=== PATIENT | female | born 1975 | race Caucasian/White ===

== ENCOUNTER 2016-09-16 15:31 | Inpatient (IN) | payer SELFPAY ==
[~2016-09-16] VITALS: Ht 162.6 cm; Wt 131.1 kg
[~2016-09-16 15:31] MED LIST: DOXYCYCLINE PO
[2016-09-16 16:38] LABS: BASO # 0.1 K/mm3 (0.0-0.2); BASO % 0.4 % (0.0-1.0); EOS % 0.1 % (0.0-3.0); LARGE UNSTAINED CELL # 0.1 K/mm3 (0.0-0.4); LARGE UNSTAINED CELL % 0.9 % (0.0-4.0); LYMPH # 1.3 K/mm3 (1.5-4.5); LYMPH % 6.9 % (24.0-44.0); MEAN CORPUSCULAR VOLUME 80.7 fl (80.0-96.0); MONO # 0.7 K/mm3 (0.0-0.8); MONO % 3.9 % (0.0-5.0); NEUTROPHILS # 14.6 K/mm3 (1.8-7.7); NEUTROPHILS % 87.8 % (36.0-66.0); PLATELET COUNT, AUTOMATED 232 k/mm3 (150-450); RED CELL DISTRIBUTION WIDTH 14.5 % (11.5-14.5); WHITE BLOOD COUNT 16.6 K/mm3 (4.0-10.0)
[2016-09-16 16:51] LABS: CONTROL LINE HCG INT CTR LINE PRESENT
[2016-09-16] MEDS ORDERED: ONDANSETRON 4MG/2ML VIAL (J2405) As Ordered ONE (16:54)
[2016-09-16 17:00] LABS: ALBUMIN 4.1 GM/DL (3.2-5.2); ALKALINE PHOSPHATASE 77 U/L (45-117); ALT/SGPT 27 U/L (12-78); ANION GAP 10 MEQ/L (8-16); AST/SGOT 24 U/L (15-37); BILIRUBIN,DIRECT < 0.1 MG/DL (0.0-0.2); BILIRUBIN,TOTAL 0.2 MG/DL (0.2-1.0); BLOOD UREA NITROGEN 11 MG/DL (7-18); CALCIUM LEVEL 8.8 MG/DL (8.5-10.1); CARBON DIOXIDE LEVEL 25 MEQ/L (21-32); CHLORIDE LEVEL 107 MEQ/L (98-107); CREATININE FOR GFR 0.82 MG/DL (0.55-1.02); GLOMERULAR FILTRATION RATE > 60.0 (>60); GLUCOSE, FASTING 108 MG/DL (70-105); MAGNESIUM LEVEL 2.1 MG/DL (1.8-2.4); SODIUM LEVEL 142 MEQ/L (136-145); TOTAL PROTEIN 8.2 GM/DL (6.4-8.2)
[2016-09-16 18:06] LABS: AMPHETAMINES LEVEL URINE NEGATIVE (NEGATIVE); BENZODIAZEPINES URINE NEGATIVE (NEGATIVE); COCAINE METABOLITE URINE NEGATIVE (NEGATIVE); CONTROL LINE INT CTR LINE PRESENT; METHADONE URINE NEGATIVE (NEGATIVE); OPIATES URINE NEGATIVE (NEGATIVE); TRICYCLIC ANTIDEPRESS URINE NEGATIVE (NEGATIVE)
--- NOTE | 2016-09-16 18:10 | REPUSA ---
TECHNIQUE: Multiple axial brain CT scan sections were obtained from base to vertex without contrast a dministration. COMMENTS: The study shows normal configuration of sella turcica. There are no intra or extra-axial collections. There is no mass effect or midline shift. There is no evidence of hematoma formation. No hydrocephal us is present. No abnormal calcifications are noted. No significant abnormalities are seen either in the posterior fossa or supratentorial compartment. The left maxillary sinusitis is seen. The mastoid air cells are patent. IMPRESSION: No evidence of acute intracranial pathology. Sinusitis Thank you for your kind referral of this patient.
[2016-09-16] MEDS ORDERED: LORazepam 2 MG/ML VIAL (J2060) As Ordered ONE (18:49)
--- NOTE | 2016-09-16 18:50 | REPUSA ---
CLINICAL HISTORY: Miscarriage. TECHNIQUE: High resolution examination consisting of transabdominal and transvaginal ultrasound perf ormed. TV exam is nondiagnostic. FINDINGS: Uterine size: 14.5 x 5.1 x 6.8. AP endometrial thickness: 10.6 mm. Hyperechoic area seen in endometrium with blood flow ? polyp vers us mass versus RPOC. Bilateral ovaries are within normal limits. Right ovary measures 2.7 x 1.2 x 3.0. RI: 0.47. Abnormality: WNL - best seen with linear probe. Left ovary measures 2.5 x 1.9 x 2.1. RI: 0.53. Abnormality: WNL - best seen with linear probe. Enlarged uterus measuring 5.2 x 4.1 x 4.5 mm. Bladder measures 9.3 x 9.2 x 10.6 cm. Moderate bladder debris seen. IMPRESSION: Hyperechoic area seen in endometrium with blood flow ? polyp versus mass versus RPOC. Clinical hieu elation is recommended. Consider short-term follow-up. Moderate bladder debris seen. Thank you for your kind referral of this patient. We appreciate the opportunity to participate in thi s patient's care.
[2016-09-16] MEDS ORDERED: levETIRAcetam 500 MG/5 ML VIAL (KEPPRA IV)(J1953) As Ordered ONE (18:55)
[2016-09-16] MEDS ORDERED: ACETAMINOPHEN 650 MG SUPP As Ordered ONE (18:55)
[2016-09-16] MEDS ORDERED: ZOSYN 3.375 GM VIAL (J2543) As Ordered ONE (19:41)
[2016-09-16] MEDS ORDERED: ONDANSETRON 4MG/2ML VIAL (J2405) IV PRN (20:00)
[2016-09-16] MEDS ORDERED: ONDANSETRON 4 MG TAB (S0181) PO PRN (20:00)
[2016-09-16] MEDS ORDERED: ACETAMINOPHEN TAB 650MG DOSE (2X325MG) PO PRN (20:00)
[2016-09-16] MEDS ORDERED: ACETAMINOPHEN 650 MG SUPP PR PRN (20:00)
[2016-09-16] MEDS ORDERED: LORazepam 2 MG/ML VIAL (J2060) IV PRN (20:00)
[2016-09-16] MEDS ORDERED: VANCOMYCIN 1000 MG/20 ML VIAL (J3370) As Ordered ONE (20:08)
--- NOTE | 2016-09-16 20:45 | HPEPDOC ---
Medical History and Physical Date of Admission 09/16/2016 History and Physical HISTORY AND PHYSICAL Date of admission: 09/16/2016 PCP: None Chief complaint: Seizures and vaginal bleeding HPI: 41-year-old [id number] Wolfgang female with history of seizure disorder and spontaneous in July 2016 who presented with seizures at 7 AM, 9 AM , and 1 PM today. She also has been experiencing daily vaginal bleeding since a miscarriage in July 2016. Per the report of her and her mother, she is known to have a seizure disorder and used to be on Dilantin. She stopped the Dilantin many years ago secondary to side effects. Her mother states that she hasn't had a "big seizure" in many years, but she does report that she often has small seizures when she gets very tired. Her mom states that the last one of these was approximately 1-1/2 years ago. Today, she had a seizure at 7 AM that was witnessed by her . He states that she became very stiff all over and it lasted about 10-15 minutes. When she woke up from it, he states that she never really got back to her normal self. About 9 AM, she had another seizure. He states that she threw up this time. Again, she did not return to her normal state of mind. He states that she had a third seizure at 1:00 this afternoon. In the ER, Dr. Quispe spoke with Dr. Presley who recommended Keppra load and then starting Keppra 750 mg twice a day. Before the patient could receive the Keppra load, she seized again. During this seizure in the ED, she received 2 mg of IV Ativan which broke the seizure. A nasal trumpet was then placed. The patient had previously been afebrile, but after this witnessed seizure in the ED , she was noted to have a fever of over 101. At that time, the patient received vancomycin and Zosyn and a lactate was drawn. The and mother state that the patient had overall been in her normal state of health in the days prior to today. The only change today note, is that she has seemed very exhausted for the last couple months. The patient was post ictal at the time of my exam and was not able to contribute to this interview. Of note, the patient's mother states that she has had daily vaginal bleeding since her miscarriage in July 2016. She states that on some days, the bleeding is like a normal menstrual flow, but on other days it is only spotting. Past medical history: Seizure disorder Past surgical history: None Family history: Colon cancer in her father, seizures in 2 of her children Social history: The patient is on much, and lives with her , 12 children , and her parents. Allergies: No known drug allergies Review of systems: Unable to obtain secondary to the patient's postictal status. Her and mother state that other than being tired, she was otherwise in her normal state of health in the days leading up to today. Other than her seizures, the only note that she vomited today. As noted above, she has had daily vaginal bleeding for 2 months. Home meds: See below Physical exam: Vital signs: Blood pressure 142/68, HR 89, temperature 101.3, O2 sat 100% on nonrebreather, RR 16 Gen.: awake, groggy, no acute distress, responds to verbal stimuli and follows directions Eyes: Extraocular movements intact, normal sclera ENT: Moist mucous membranes Cardiovascular: RRR, no murmurs rubs or gallops Lungs: clear to auscultation bilaterally, no rales, rhonchi, or wheeze Abdomen: Soft, NT/ND, normal BS Musculoskeletal: moves all extremities Extremities: No peripheral edema Neuro: postictal, moves all extremities, follows commands, responds to verbal stimuli Psych: unable to assess Labs and radiology: See below White count 16.6 Hemoglobin 10.3 Lactate 7.7 Assessment and plan: 41-year-old [id number] [facility] female with history of seizure disorder and spontaneous in July 2016 who presented with seizures at 7 AM, 9 AM , and 1 PM today, as well as daily vaginal bleeding since the miscarriage. She is admitted with breakthrough seizures and retained products of conception, as well as a fever. 1. Breakthrough seizures: The patient is known to have seizure disorder and is not currently on any antiepileptics. Per Dr. Presley's recommendations, she has received a Keppra load and is being started on Keppra 750 mg twice a day. She' ll be monitored in the PCU with seizure precautions and neuro checks. She will have as needed Ativan for any further breakthrough seizures. At this time, it is unclear if the seizures are a result of an underlying process, or if her new fever is resolved seizure. She will be nothing by mouth with IV fluids since she is still postictal. 2. Fever: After the seizure in the ER, the patient was noted to have a fever of over 101. Blood and urine cultures have been collected, and she received vancomycin and zosyn. Chest x-ray is pending. Etiology of the fever is unclear at this time, but differential includes fever secondary to the seizures, fever secondary to possible aspiration from emesis with the seizures, or fever secondary to endometritis from retained products of conception. We will follow up the chest x-ray. At this time, we will only continue her on Zosyn, as I believe that most likely if the fever is infectious in nature, it is secondary to either aspiration pneumonia or endometritis, both of which would be covered by Zosyn. Of note, the ER physician tells me that when she examined the patient prior to the seizure in the ER, she had a supple neck and no signs of meningismus. It is possible that the patient is septic, but we will not be able to tease this out until we determine if she has a true underlying infection. Given that she is hemodynamically stable, I will not be bolusing her with IV fluids but will rather just start her on gentle maintenance fluids. An initial lactate was 7.7. Again, this could be secondary to an underlying infectious process, but it could also simply be secondary to her seizures. A repeat lactate will be collected in 6 hours. 3. Vaginal bleeding: The patient has had daily vaginal bleeding since her miscarriage 2 months ago. An ultrasound is consistent with retained products of conception. I have spoken with Dr. Chandra who is hat ironer for [employer], and [facility] will be [facility] We appreciate his recommendations and management of this patient. Of note, the patient is Rh-, but the patient's mother assures us that the patient received Rhogam at home after the miscarriage in July. Hemoglobin is 10.3. She has no urgent need for transfusion, and we'll continue to trend her hemoglobins. DVT prophylaxis: SCDs Dispo: admit as an inpatient to the service of Dr. Spivey CODE STATUS: Full code Vital Signs see above Laboratory Data Labs 24H Laboratory Tests 2 09/16/16 16:12: Bedside Glucose (Misc Panel) 97 09/16/16 16:25: Aspartate Amino Transf (AST/SGOT) 24, Alanine Aminotransferase (ALT/SGPT) 27, Alkaline Phosphatase 77, Total Bilirubin 0.2, Direct Bilirubin < 0.1, Albumin 4.1, Albumin/Globulin Ratio 1.00, Anion Gap 10, White Blood Count 16.6H, Red Blood Count 4.10, Hemoglobin 10.3L, Hematocrit 33.1L, Mean Corpuscular Volume 80.7, Mean Corpuscular Hemoglobin 25.0L, Mean Corpuscular Hemoglobin Concent 31.0L, Red Cell Distribution Width 14.5, Platelet Count 232, Neutrophils (%) ( Auto) 87.8H, Lymphocytes (%) (Auto) 6.9L, Monocytes (%) (Auto) 3.9, Eosinophils (%) (Auto) 0.1, Basophils (%) (Auto) 0.4, Neutrophils # (Auto) 14.6H, Lymphocytes # (Auto) 1.3L, Monocytes # (Auto) 0.7, Eosinophils # (Auto) 0.0, Basophils # (Auto) 0.1, Calcium Level 8.8, Creatine Kinase MB 1.8, Creatine Kinase MB Relative Index 0.70, Glomerular Filtration Rate > 60.0, Human Chorionic Gonadotropin, Qual NEGATIVE, Large Unclassified Cells # 0.1, Large Unclassified Cells % 0.9, Magnesium Level 2.1, Total Creatine Kinase 255H, Total Protein 8.2, Troponin I < 0.02 09/16/16 17:43: Urine Amorphous Sediment SMALLH, Urine Amphetamine Level NEGATIVE, Urine Benzodiazepines Screen NEGATIVE, Urine Cannabinoids NEGATIVE, Urine Cocaine Metabolite NEGATIVE, Urine Opiates Screen NEGATIVE, Urine Appearance TURBIDH, Urine Color YELLOW, Urine pH 5.0, Urine Specific [place] 1.012, Urine Protein NEGATIVE, Urine Glucose (UA) NEGATIVE, Urine Ketones NEGATIVE, Urine Urobilinogen 0.2, Urine Bilirubin NEGATIVE, Urine Leukocyte Esterase TRACEH, Urine Bacteria (Auto) 1+H, Urine Barbiturates, Qualitative NEGATIVE, Urine Blood 3+H, Urine Calcium Carbonate Cryst(Auto) , Urine Calcium Oxalate Cryst ( Auto) , Urine Calcium Phosphate Allie (Auto) , Urine Cellular Casts , Urine Cystine Crystals , Urine Granular Casts (Auto) , Urine Hyaline Casts (Auto) 0, Urine Leucine Crystals , Urine Methadone Screen NEGATIVE, Urine Mucus (Auto) , Urine Nitrite NEGATIVE, Urine Oval Fat Bodies (Auto) , Urine RBC (Auto) 90H, Urine Renal Epithelial Cells , Urine Sperm (Auto) , Urine Squamous Epithelial Cells 1, Urine Transitional Epithelial Cells , Urine Trichomonas (Auto) , Urine Tricyclic Antidepressants NEGATIVE, Urine Triple Phosphate Cryst (Auto) , Urine Tyrosine Crystals , Urine Uric Acid Crystals (Auto) MODERATE, Urine WBC (Auto) 9H, Urine Waxy Casts (Auto) , Urine Yeast-Like Cells (Auto) 09/16/16 19:35: Lactic Acid Level 7.7*H CBC/BMP Laboratory Tests 09/16/16 16:25 Red Blood Count 4.10, Mean Corpuscular Volume 80.7, Mean Corpuscular Hemoglobin 25.0 L, Mean Corpuscular Hemoglobin Concent 31.0 L, Red Cell Distribution Width 14.5, Neutrophils (%) (Auto) 87.8 H, Lymphocytes (%) (Auto) 6.9 L, Monocytes (% ) (Auto) 3.9, Eosinophils (%) (Auto) 0.1, Basophils (%) (Auto) 0.4, Neutrophils # (Auto) 14.6 H, Lymphocytes # (Auto) 1.3 L, Monocytes # (Auto) 0.7, Eosinophils # (Auto) 0.0, Basophils # (Auto) 0.1 FSBS Laboratory Tests Test 09/16/16 16:12 Range/Units Bedside Glucose (Misc Panel) 97 70-105 MG/DL Microbiology Microbiology 09/16/16 Blood Culture, Received Pending 09/16/16 Blood Culture, Received Pending 09/16/16 Urine Culture, Received Pending Home Medications No Active Prescriptions or Reported Meds Allergies Coded Allergies: No Known Allergies (Unverified , 02/04/14) DANY FINLEY Sep 16, 2016 20:45
--- NOTE | 2016-09-16 21:54 | EDDOCDS ---
Nurse's Notes [facility] Name: Annette Gerardo Age: 41 yrs Sex: Female : 1975 Arrival Date: 09/16/2016 Time: 15:31 Bed 2 Private MD: NO PRIMARY PHYSICIAN, . Diagnosis: Epilepsy and recurrent seizures;Abnormal product of conception, unspecified-retained; vaginal bleeding Presentation: 09/16 15:45 Adult Sepsis Screening: The patient does not have new or worsening altered mentation. jf3 Patient's respiratory rate is less than 22. Systolic blood pressure is greater than 100. Patient has a qSOFA score of 0- Negative Sepsis Screen. Suicide/Homicide risk assessment- the patient denies having any suicidal and/or homicidal ideations and does not present with any other emotional, behavioral or mental health complaints. Status: Patient is not a service tester or dependent. Transition of care: patient was not received from another setting of care. 15:45 Method Of Arrival: Walkin/Carried/Asstd 3 15:45 Acuity: GEE Level 3 jf3 15:59 Presenting complaint: Mother states: Family states pt had a seizure this AM around 7am jf3 today. Another seizure around 9am today with vomiting and pt fell and may have hit head. Another seizure at 1pm with vomiting. Family states recent miscarriage in mid July with on and off bleeding with varying heaviness in flow ever since. 17:10 Red Flag criteria, patient assessed and taken directly to a bed. dls Triage Assessment: 15:59 General: Appears sleepy and tired. Pain: Location: forehead. Pt Declines HIV testing. jf3 The patient is triaged at the bedside. See Assessment in Nurses Notes section of ED record. Neurological: Level of Consciousness is awake, alert, Oriented to person, place, time, Facial symmetry appears normal, Pupils are PERRLA. Cardiovascular: Capillary refill < 3 seconds. Respiratory: Airway is patent Respiratory effort is even, unlabored, Respiratory pattern is regular, symmetrical. Derm: Skin is normal. PET GROOMER: 15:59 14, 2, Living 12 jf3 Historical: - Allergies: no known allergies; - Home Meds: 1. none - PMHx: Seizures; - PSHx: none; - Social history: Smoking status: Patient states was never smoker of tobacco. No barriers to communication noted, The patient speaks fluent Croatian. - Family history: Not pertinent. - : The pt / caregiver states he / she is not on anticoagulants. Home medication list is obtained from family members. - Exposure Risk Screening:: None identified. Screenin:07 Screening information is obtained from family members. Fall risk: No risks identified. jf3 Assistance ADL's: requires no assistance with activities of daily living. Abuse/DV Screen: The patient / caregiver reports he/she is: not in a situation that causes fear, pain or injury. Nutritional screening: No deficits noted. Advance Directives: Currently, there is no health care proxy. There is no active DNR order. home support is adequate. Assessment: 16:07 Adult Sepsis Screening: The patient does not have new or worsening altered mentation. jf3 Patient's respiratory rate is less than 22. Systolic blood pressure is greater than 100. Patient has a qSOFA score of 0- Negative Sepsis Screen. General: Appears in no apparent distress, sleepy. Behavior is cooperative. Pain: Location: forehead. Neurological: Level of Consciousness is awake, alert, Oriented to person, place, time, Sole Buffer are equal bilaterally Moves all extremities. Facial symmetry appears normal, Pupils are PERRLA. Cardiovascular: Capillary refill < 3 seconds Heart tones S1 S2 present Chest pain is denied. Respiratory: Airway is patent Respiratory effort is even, unlabored, Respiratory pattern is regular, symmetrical, Breath sounds are clear bilaterally. Derm: Skin is normal. 17:00 General: Appears sleepy. Behavior is drowsy, quiet. Neurological: Level of jf3 Consciousness is post ictal, Oriented to Pt intermittently confused. Respiratory: Airway is patent Respiratory effort is even, unlabored, Respiratory pattern is regular, symmetrical. GI: Reports nausea, vomiting. 18:15 General: Appears in no apparent distress, Behavior is drowsy, quiet. Neurological: jf3 Level of Consciousness is awake, post ictal. Respiratory: Airway is patent Respiratory effort is even, unlabored, Respiratory pattern is regular, symmetrical. 18:50 General: Pt noted by staff to be actively seizing in room on stretcher. Seizure lasting jf3 approx 1 min in length. Non-rebreather O2 placed on pt. Pt suctioned orally. Nasal trumpet placed in right nare by Dr Quispe. Pt safety maintained, IV site maintained. Temporal temp checked to be 101.3 with a follow up rectal of 99.3. Dr Quispe aware and ordered PA Acetaminophen. Ativan 2mg IV given by VI Mak at 1850. Keppra 1000mg IVPB hung at 1900. Family returned to room and informed of event by Dr Quispe. 19:15 General: Appears in no apparent distress, Behavior is drowsy. Neurological: Level of ko2 Consciousness is post ictal. Respiratory: Airway is compromised Respiratory effort is even, unlabored, Respiratory pattern is regular, symmetrical. Derm: Skin is normal. 20:12 General: critical lab value of latic acid of 7.[address] Venegas.. cp1 20:46 General: Appears in no apparent distress, Behavior is cooperative. Neurological: Level ko2 of Consciousness is awake, lethargic. Respiratory: Airway is patent Respiratory effort is even, unlabored. Derm: Skin is normal. Vital Signs: 15:35 BP 154 / 86; Pulse 91; Resp 18; Temp 98.4(O); Pulse Ox 100% on R/A; Weight 117 kg (R); elp Height 5 ft. 4 in. (162.56 cm) (R); Pain 0/10; 15:51 BP 140 / 65 (auto/); ko2 15:52 Pulse 81 MON; Pulse Ox 98% ; ko2 15:59 Pulse 81 MON; Pulse Ox 100% ; ko2 16:00 BP 148 / 68 (auto/); ko2 16:30 BP 148 / 68 (auto/); ko2 16:30 Pulse 80 MON; Pulse Ox 98% ; ko2 17:22 BP 131 / 61 (auto/); ko2 17:22 Pulse 85 MON; Pulse Ox 98% ; ko2 17:30 BP 132 / 65 (auto/); ko2 17:30 Pulse 90 MON; Pulse Ox 100% ; ko2 17:44 Pulse 84 MON; Pulse Ox 99% ; ko2 17:45 BP 124 / 75 (auto/); ko2 18:00 BP 117 / 58 (auto/); ko2 18:00 Pulse 82 MON; Pulse Ox 98% ; ko2 18:15 BP 116 / 60 (auto/); ko2 18:15 Pulse 84 MON; Pulse Ox 97% ; ko2 18:29 Pulse 82 MON; Pulse Ox 97% ; ko2 18:30 BP 116 / 57 (auto/); ko2 18:44 Pulse 84 MON; Pulse Ox 99% ; ko2 18:45 BP 114 / 61 (auto/); ko2 19:01 Temp 101.3(TE); pml 19:01 Temp 99.3(R); pml 19:15 Pulse 114 MON; Pulse Ox 100% ; ko2 19:15 BP 123 / 65 (auto/); ko2 19:37 BP 142 / 68 (auto/); ko2 19:37 Pulse 106 MON; ko2 19:56 BP 115 / 57 (auto/); ko2 19:58 Pulse 95 MON; Pulse Ox 100% ; ko2 20:00 BP 130 / 60 (auto/); ko2 20:00 Pulse 101 MON; Pulse Ox 100% ; ko2 20:14 Pulse Ox 100% ; ko2 20:15 BP 123 / 61 (auto/); ko2 20:16 Pulse Ox 97% ; ko2 20:30 BP 110 / 67 (auto/); ko2 15:35 Body Mass Index 44.27 (117.00 kg, 162.56 cm) elp Vitals: 15:35 Log In Time: September 16, 2016 at 15:34. elp 15:36 RN notified that patient meets Red Flag criteria. elp ED Course: 15:34 Patient visited by Deepti Welsh PCA. elp 15:34 Patient moved to Waiting elp 15:36 Patient visited by Deepti Welsh PCA. elp 15:36 NO PRIMARY PHYSICIAN, . is Private Physician. elp 15:36 Jameel Hankins, RN is Primary Nurse. elp 15:36 Patient moved to 2 elp 15:46 Triage Initiated jf3 15:57 Anne Forbes MD is Attending Physician. ml 15:57 Patient visited by Anne Forbes MD. ml 16:07 The patient / caregiver is instructed regarding the plan of care and ED course. Seizure jf3 precautions initiated. cardiac monitor technician on. Pulse ox on. NIBP on. 16:08 Patient visited by Todd Sevilla,VI. jf3 16:32 Patient moved to [facility] br3 16:33 EKG done. (by ED staff). Reviewed by Anne Forbes MD. ct3 16:38 Patient visited by Emelina Lewis PCA. ct3 17:07 COUNT INCLUDES THE [facility] Payment Agreement was scanned into [employer] and attached to record. ks16 17:12 Inserted saline lock: 20 gauge in right antecubital area The patient tolerated the jf3 procedure well. placed by VI Monsivais. No procedures done that require assistance. 17:14 Patient moved to 2 br3 17:15 Patient name changed from Annette\S\\S\Swartzentruber\S\ to Annette\S\ \S\Swartzentruber. EDMS 17:38 Patient visited by Todd Sevilla RN. jf3 17:50 Urine Toxicology Sent. kpj 17:50 Urine Culture Sent. kpj 17:50 UA Sent. kpj 18:21 Patient visited by Todd Sevilla RN. jf3 18:34 CT Head Without Contrast Returned. EDMS 18:46 Patito Venegas is Hospitalizing Provider. ml 18:56 Tammy Lewis,VI is Primary Nurse. ko2 19:03 Patient visited by Wendi Mak RN. pml 19:05 Patient visited by Brian Brasher, SAMIR. kb5 19:15 Patient visited by Todd Sevilla RN. jf3 19:16 Patient visited by Tammy Lewis,VI. ko2 19:17 -US Pelvic Non-Ob Complete Returned. EDMS 19:39 Lactic Acid (Quispe tube on ice) Sent. ko2 19:39 BLOOD CULTURES Sent. ko2 20:04 Primary Nurse role handed off by Jameel Hankins, VI [facility] Administered Medications: 16:29 Drug: NS 0.9% 1000 ml [sodium chloride 0.9 % intravenous solution] Route: IV; Rate: 100 ld5 mL/hr; Site: right antecubital; 17:34 Drug: Ondansetron 4 mg [ondansetron HCl 2 mg/mL intravenous solution (2 mL)] Route: jf3 IVP; Site: right antecubital; 18:21 Follow up: Response: Nausea is decreased jf3 18:50 Drug: LORazepam 2 mg [lorazepam 2 mg/mL injection solution (1 mL)] Route: IVP; Site: pml right antecubital; 19:00 Drug: levETIRAcetam (20mg/kg) 1000 mg [levetiracetam 500 mg/5 mL intravenous solution] jf3 Route: IVPB; Rate: 400 mL/hr; Infused Over: 15 mins; Site: right antecubital; 19:39 Follow up: IV Status: Completed infusion; IV Intake: 100ml ko2 19:02 Drug: Acetaminophen 650 mg [acetaminophen 650 mg rectal suppository (1 supp)] Route: PA;pml 19:50 Drug: Piperacillin-Tazobactam 3.375 grams [piperacillin-tazobactam 3.375 gram ko2 intravenous solution] Route: IVPB; Infused Over: 30 mins; Site: right antecubital; 20:27 Follow up: IV Status: Completed infusion; IV Intake: 50ml ko2 20:28 Drug: vancomycin (loading dose for pt. wt. >= 80kg) 2000 mg [vancomycin 500 mg ko2 intravenous solution] Route: IVPB; Site: right antecubital; Intake: 19:39 IV: 100.00ml; Total: 100.00ml. ko2 20:27 IV: 50.00ml; Total: 150.00ml. ko2 Order Results: Lab Order: CBC with Diff; SPEC'M 09/16/16 16:25 Test: WHITE BLOOD COUNT; Value: 16.6; Range: 4.0-10.0; Abnormal: Above high normal; Units: K/mm3; Status: F Test: RED BLOOD COUNT; Value: 4.10; Range: 4.00-5.40; Units: M/mm3; Status: F Test: HEMOGLOBIN; Value: 10.3; Range: 12.0-16.0; Abnormal: Below low normal; Units: g/dl; Status: F Test: HEMATOCRIT; Value: 33.1; Range: 36.0-47.0; Abnormal: Below low normal; Units: %; Status: F Test: MEAN CORPUSCULAR VOLUME; Value: 80.7; Range: 80.0-96.0; Units: fl; Status: F Test: MEAN CORPUSCULAR HEMOGLOBIN; Value: 25.0; Range: 27.0-33.0; Abnormal: Below low normal; Units: pg; Status: F Test: MEAN CORPUSCULAR HGB CONC; Value: 31.0; Range: 32.0-36.5; Abnormal: Below low normal; Units: g/dl; Status: F Test: RED CELL DISTRIBUTION WIDTH; Value: 14.5; Range: 11.5-14.5; Units: %; Status: F Test: PLATELET COUNT, AUTOMATED; Value: 232; Range: 150-450; Units: k/mm3; Status: F Test: NEUTROPHILS %; Value: 87.8; Range: 36.0-66.0; Abnormal: Above high normal; Units: %; Status: F Test: LYMPH %; Value: 6.9; Range: 24.0-44.0; Abnormal: Below low normal; Units: %; Status: F Test: MONO %; Value: 3.9; Range: 0.0-5.0; Units: %; Status: F Test: EOS %; Value: 0.1; Range: 0.0-3.0; Units: %; Status: F Test: BASO %; Value: 0.4; Range: 0.0-1.0; Units: %; Status: F Test: LARGE UNSTAINED CELL %; Value: 0.9; Range: 0.0-4.0; Units: %; Status: F Test: NEUTROPHILS #; Value: 14.6; Range: 1.8-7.7; Abnormal: Above high normal; Units: K/mm3; Status: F Test: LYMPH #; Value: 1.3; Range: 1.5-4.5; Abnormal: Below low normal; Units: K/mm3; Status: F Test: MONO #; Value: 0.7; Range: 0.0-0.8; Units: K/mm3; Status: F Test: EOS #; Value: 0.0; Range: 0.0-0.50; Units: K/mm3; Status: F Test: BASO #; Value: 0.1; Range: 0.0-0.2; Units: K/mm3; Status: F Test: LARGE UNSTAINED CELL #; Value: 0.1; Range: 0.0-0.4; Units: K/mm3; Status: F Lab Order: MED Profile; SPEC'M 09/16/16 16:25 Test: GLUCOSE, FASTING; Value: 108; Range: 70-105; Abnormal: Above high normal; Units: MG/DL; Status: F Test: BLOOD UREA NITROGEN; Value: 11; Range: 7-18; Units: MG/DL; Status: F Test: CREATININE FOR GFR; Value: 0.82; Range: 0.55-1.02; Units: MG/DL; Status: F Test: SODIUM LEVEL; Range: 136-145; Units: MEQ/L; Status: I Test: POTASSIUM SERUM; Range: 3.5-5.1; Units: MEQ/L; Status: I Test: CHLORIDE LEVEL; Range: 98-107; Units: MEQ/L; Status: I Test: CARBON DIOXIDE LEVEL; Range: 21-32; Units: MEQ/L; Status: I Test: ANION GAP; Range: 8-16; Units: MEQ/L; Status: I Test: CALCIUM LEVEL; Range: 8.5-10.1; Units: MG/DL; Status: I Test: GLOMERULAR FILTRATION RATE; Value: > 60.0; Range: >60; Status: F Test: SODIUM LEVEL; Value: 142; Range: 136-145; Units: MEQ/L; Status: F Test: POTASSIUM SERUM; Value: 4.0; Range: 3.5-5.1; Units: MEQ/L; Status: F Test: CHLORIDE LEVEL; Value: 107; Range: 98-107; Units: MEQ/L; Status: F Test: CARBON DIOXIDE LEVEL; Value: 25; Range: 21-32; Units: MEQ/L; Status: F Test: ANION GAP; Value: 10; Range: 8-16; Units: MEQ/L; Status: F Test: CALCIUM LEVEL; Value: 8.8; Range: 8.5-10.1; Units: MG/DL; Status: F Test Note: ; Units are mL/min/1.73 m2 Chronic Kidney Disease Staging per NKF: Stage I & II GFR >=60 Normal to Mildly Decreased Stage III GFR 30-59 Moderately Decreased Stage IV GFR 15-29 Severely Decreased Stage V GFR <15 Very Little GFR Left ESRD GFR <15 on TELEPHONE ORDER SUPERVISOR Lab Order: Liver Profile; TIFF'David 09/16/16 16:25 Test: AST/SGOT; Value: 24; Range: 15-37; Units: U/L; Status: F Test: ALT/SGPT; Value: 27; Range: 12-78; Units: U/L; Status: F Test: ALKALINE PHOSPHATASE; Value: 77; Range: 45-117; Units: U/L; Status: F Test: BILIRUBIN,TOTAL; Value: 0.2; Range: 0.2-1.0; Units: MG/DL; Status: F Test: BILIRUBIN,DIRECT; Value: < 0.1; Range: 0.0-0.2; Units: MG/DL; Status: F Test: TOTAL PROTEIN; Value: 8.2; Range: 6.4-8.2; Units: GM/DL; Status: F Test: ALBUMIN; Value: 4.1; Range: 3.2-5.2; Units: GM/DL; Status: F Test: ALBUMIN/GLOBULIN RATIO; Value: 1.00; Range: 1.00-1.93; Status: F Lab Order: Magnesium Level; SPEC' 09/16/16 16:25 Test: MAGNESIUM LEVEL; Value: 2.1; Range: 1.8-2.4; Units: MG/DL; Status: F Lab Order: CIP; SPEC' 09/16/16 16:25 Test: CPK CREATINE PHOSPHOKINASE; Value: 255; Range: 26-192; Abnormal: Above high normal; Units: U/L; Status: F Test: CK-MB VALUE MASS; Value: 1.8; Range: 0.0-3.6; Units: NG/ML; Status: F Test: MB/CK RELATIVE INDEX; Value: 0.70; Range: < OR =4; Status: F Test Note: ; DIAGNOSIS CRITERIA MMB ng/ml Relative Index (RI) NON-AMI < or = 5 N/A QUISPE ZONE > 5 < or = 4 AMI > 5 > 4 Lab Order: Troponin; SPEC' 09/16/16 16:25 Test: TROPONIN I; Value: < 0.02; Range: < 0.10; Units: NG/ML; Status: F Test Note: ; Troponin I Reference Interval for [employer] LOCI: 99th Percentile= 0.00-0.045 ng/ml Risk Stratification: <= 0.10 ng/ml Decreased Risk for Adverse Clinical Events. 0.10-1.50 ng/ml Increased Risk for Adverse Clinical Events. Evaluation of additional criterion and/or repeat testing in 2-6 hours is suggested to rule out myocardial damage. >= 1.50 ng/ml Indicative of Myocardial Injury. Lab Order: HCG,Serum Qualitative; SPEC'M 09/16/16 16:25 Test: HCG, SERUM QUALITATIVE; Value: NEGATIVE; Range: NEGATIVE; Status: F Lab Order: Type & Screen; [facility] 09/16/16 16:25 Test: BLOOD TYPE; Value: A NEG; Status: F Test: AB SCREEN(INDIRECT MAURI) MAN; Value: NEGATIVE; Status: F Lab Order: Fingerstick Blood Sugar; [facility] 09/16/16 16:12 Test: BEDSIDE GLUCOSE; Value: 97; Range: 70-105; Units: MG/DL; Status: F Lab Order: UA; [facility] 09/16/16 17:43 Test: APPEARANCE, URINE; Value: TURBID; Range: CLEAR; Abnormal: Above high normal; Status: F Test: COLOR, URINE; Value: YELLOW; Range: YELLOW; Status: F Test: PH,URINE; Value: 5.0; Range: 5.0-9.0; Units: UNITS; Status: F Test: SPECIFIC GRAVITY URINE AUTO; Value: 1.012; Range: 1.002-1.035; Status: F Test: PROTEIN, URINE AUTO; Value: NEGATIVE; Range: NEGATIVE; Units: mg/dL; Status: F Test: GLUCOSE, URINE (UA) AUTO; Value: NEGATIVE; Range: NEGATIVE; Units: mg/dL; Status: F Test: KETONE, URINE AUTO; Value: NEGATIVE; Range: NEGATIVE; Units: mg/dL; Status: F Test: UROBILINOGEN, URINE AUTO; Value: 0.2; Range: 0.0-2.0; Units: mg/dL; Status: F Test: BILIRUBIN, URINE AUTO; Value: NEGATIVE; Range: NEGATIVE; Status: F Test: NITRITE, URINE AUTO; Value: NEGATIVE; Range: NEGATIVE; Status: F Test: LEUKOCYTE ESTERASE, URINE AUTO; Value: TRACE; Range: NEGATIVE; Abnormal: Above high normal; Status: F Test: BLOOD, URINE BLOOD; Value: 3+; Range: NEGATIVE; Abnormal: Above high normal; Status: F Test: WBC, URINE AUTO; Value: 9; Range: 0-3; Abnormal: Above high normal; Units: /HPF; Status: F Test: RBC, URINE AUTO; Value: 90; Range: 0-3; Abnormal: Above high normal; Units: /HPF; Status: F Test: BACTERIA, URINE AUTO; Value: 1+; Range: NEGATIVE; Abnormal: Above high normal; Status: F Test: SQUAMOUS EPITHELIAL CELL UR AU; Value: 1; Range: 0-6; Units: /HPF; Status: F Test: HYALINE CAST, URINE AUTO; Value: 0; Range: 0-1; Units: /LPF; Status: F Test: AMORPHOUS SEDIMENT; Value: SMALL; Range: NEGATIVE; Abnormal: Above high normal; Status: F Test: URIC ACID CRYSTALS; Value: MODERATE; Range: NONE; Status: F Lab Order: Urine Toxicology; SPEC'M 09/16/16 17:43 Test: AMPHETAMINES LEVEL URINE; Value: NEGATIVE; Range: NEGATIVE; Status: F Test: BARBITURATES URINE; Value: NEGATIVE; Range: NEGATIVE; Status: F Test: BENZODIAZEPINES URINE; Value: NEGATIVE; Range: NEGATIVE; Status: F Test: CANNABINOIDS URINE; Value: NEGATIVE; Range: NEGATIVE; Status: F Test: COCAINE METABOLITE URINE; Value: NEGATIVE; Range: NEGATIVE; Status: F Test: METHADONE URINE; Value: NEGATIVE; Range: NEGATIVE; Status: F Test: OPIATES URINE; Value: NEGATIVE; Range: NEGATIVE; Status: F Test: TRICYCLIC ANTIDEPRESS URINE; Value: NEGATIVE; Range: NEGATIVE; Status: F Test Note: ; ALL PRESUMPTIVE POSITIVE FINDINGS ARE UNCONFIRMED NORMAL VALUES THRESHOLD IN NG/ML AMPHETAMINES 1000 METHAMPHETAMINES 1000 BARBITURATES 300 BENZODIAZEPINES 300 CANNABINOIDS (THC) 50 COCAINE METABOLITE 300 METHADONE 300 OPIATES 300 PHENCYCLIDINE 25 TRICYCLIC ANTIDEPRESSANTS 1000 RESULTS ARE FOR MEDICAL PURPOSES ONLY. ALL URINE SPECIMENS WILL BE SAVED FOR 3 DAYS. IF CONFIRMATION OF A PRESUMPTIVE POSTIVE SCREEN RESULT IS DESIRED, CALL CHEMISTRY ([phone]) AND REQUEST URINE TO BE SENT TO REFERENCE LAB. FOR A LIST OF CLOSELY RELATED COMPOUNDS PLEASE CALL THE LAB. Lab Order: Lactic Acid (Quispe tube on ice); SPEC'M 09/16/16 19:35 Test: LACTIC ACID LEVEL, LACTATE; Value: 7.7; Range: 0.4-2.0; Abnormal: Above upper panic limits; Units: MMOL/L; Status: F Radiology Order: CT Head Without Contrast Test: CT Head Without Contrast REASON FOR EXAMINATION: sz x 3; ; ; TECHNIQUE: Multiple axial brain CT scan sections were obtained from base to vertex without contrast a; dministration.; COMMENTS:; The study shows normal configuration of sella turcica. There are no intra or extra-axial collections.; There is no mass effect or midline shift. There is no evidence of hematoma formation. No hydrocephal; us is present. No abnormal calcifications are noted.; No significant abnormalities are seen either in the posterior fossa or supratentorial compartment.; The left maxillary sinusitis is seen. The mastoid air cells are patent.; IMPRESSION:; No evidence of acute intracranial pathology. Sinusitis; Thank you for your kind referral of this patient.; ; Radiology Order: -US Pelvic Non-Ob Complete Test: -US Pelvic Non-Ob Complete REASON FOR EXAMINATION: + miscarriage 07/26 bldg since; ; CLINICAL HISTORY: Miscarriage.; ; TECHNIQUE: High resolution examination consisting of transabdominal and transvaginal ultrasound perf; ormed. TV exam is nondiagnostic.; ; FINDINGS:; Uterine size: 14.5 x 5.1 x 6.8.; ; AP endometrial thickness: 10.6 mm. Hyperechoic area seen in endometrium with blood flow ? polyp vers; us mass versus RPOC.; Bilateral ovaries are within normal limits.; ; Right ovary measures 2.7 x 1.2 x 3.0. RI: 0.47. Abnormality: WNL - best seen with linear probe.; ; Left ovary measures 2.5 x 1.9 x 2.1. RI: 0.53. Abnormality: WNL - best seen with linear probe.; ; Enlarged uterus measuring 5.2 x 4.1 x 4.5 mm.; Bladder measures 9.3 x 9.2 x 10.6 cm. Moderate bladder debris seen.; ; IMPRESSION:; Hyperechoic area seen in endometrium with blood flow ? polyp versus mass versus RPOC. Clinical hieu; elation is recommended. Consider short-term follow-up.; Moderate bladder debris seen.; ; Thank you for your kind referral of this patient. We appreciate the opportunity to participate in thi; s patient's care.; ; Outcome: 18:47 Decision to Hospitalize by Provider. ml 21:39 Discharge Assessment: Patient awake, alert and oriented x 3. No cognitive and/or ko2 functional deficits noted. Patient verbalized understanding of disposition instructions. patient administered narcotics - no. The following High Risk Discharge criteria are identified: None. Admitted to ICU accompanied by nurse, accompanied by tech, via stretcher, on monitor, with chart. Condition: stable. Property :Personal belongings accompany Pt. 21:42 No special radiology studies were completed. Admission hand-off: Report called to jose martin Hemphill RN ICU. 21:53 Patient left the ED. massiel Signatures: Dispatcher [employer] EDDE Faby-Anne Quispe MD MD ml Jobson, Karen, RN RN rosales Harris, Alison Castro, RN Layne Beasley RN RN dls Anshu, Brian, SPRING ASSEMBLER SPRING ASSEMBLER kb5 Viktoriya Mcelroy br3 Carleen Alexander,SPRING MACHINE OPERATOR SPRING MACHINE OPERATOR cp1 Merle WarnerRN RN ld5 Emelina Lewis, SPRING ASSEMBLER SPRING ASSEMBLER ct3 Wendi MakRN Deepti Barfield, SPRING ASSEMBLER SPRING ASSEMBLER elp Tammy Lewis RN RN ko2 Farman, Justin,VI LEBRON jf3 Alison Murphy, Reg Reg ks16 Coleman, Bruce, SPRING ASSEMBLER SPRING ASSEMBLER jmv Corrections: (The following items were deleted from the chart) 16:09 15:59 15, 2, Living 13 3 3 MTDD
--- NOTE | 2016-09-16 21:54 | EDDOCDS ---
Physician Documentation [facility] Name: Annette Gerardo Age: 41 yrs Sex: Female : 1975 Arrival Date: 09/16/2016 Time: 15:31 Bed 2 Private MD: NO PRIMARY PHYSICIAN, . Disposition: 09/16 19:07 Critical Care:. ml Disposition: 09/16/16 18:47 Hospitalization ordered by Patito Venegas for Inpatient Admission. Preliminary diagnosis are Epilepsy and recurrent seizures, Abnormal product of conception, unspecified - retained; vaginal bleeding. - Bed requested for ICU. - Status is Inpatient Admission. massiel - Condition is Stable. - Problem is new. - Symptoms are unchanged. Historical: - Allergies: no known allergies; - Home Meds: 1. none - PMHx: Seizures; - PSHx: none; - Social history: Smoking status: Patient states was never smoker of tobacco. No barriers to communication noted, The patient speaks fluent Maltese. - Family history: Not pertinent. - : The pt / caregiver states he / she is not on anticoagulants. Home medication list is obtained from family members. - Exposure Risk Screening:: None identified. 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 4 in. (162.56 cm) (R); Pain 0/10; 15:51 BP 140 / 65 (auto/); ko2 15:52 Pulse 81 MON; Pulse Ox 98% ; ko2 15:59 Pulse 81 MON; Pulse Ox 100% ; ko2 16:00 BP 148 / 68 (auto/); ko2 16:30 BP 148 / 68 (auto/); ko2 16:30 Pulse 80 MON; Pulse Ox 98% ; ko2 17:22 BP 131 / 61 (auto/); ko2 17:22 Pulse 85 MON; Pulse Ox 98% ; ko2 17:30 BP 132 / 65 (auto/); ko2 17:30 Pulse 90 MON; Pulse Ox 100% ; ko2 17:44 Pulse 84 MON; Pulse Ox 99% ; ko2 17:45 BP 124 / 75 (auto/); ko2 18:00 BP 117 / 58 (auto/); ko2 18:00 Pulse 82 MON; Pulse Ox 98% ; ko2 18:15 BP 116 / 60 (auto/); ko2 18:15 Pulse 84 MON; Pulse Ox 97% ; ko2 18:29 Pulse 82 MON; Pulse Ox 97% ; ko2 18:30 BP 116 / 57 (auto/); ko2 18:44 Pulse 84 MON; Pulse Ox 99% ; ko2 18:45 BP 114 / 61 (auto/); ko2 19:01 Temp 101.3(TE); pml 19:01 Temp 99.3(R); pml 19:15 Pulse 114 MON; Pulse Ox 100% ; ko2 19:15 BP 123 / 65 (auto/); ko2 19:37 BP 142 / 68 (auto/); ko2 19:37 Pulse 106 MON; ko2 19:56 BP 115 / 57 (auto/); ko2 19:58 Pulse 95 MON; Pulse Ox 100% ; ko2 20:00 BP 130 / 60 (auto/); ko2 20:00 Pulse 101 MON; Pulse Ox 100% ; ko2 20:14 Pulse Ox 100% ; ko2 20:15 BP 123 / 61 (auto/); ko2 20:16 Pulse Ox 97% ; ko2 20:30 BP 110 / 67 (auto/); ko2 15:35 Body Mass Index 44.27 (117.00 kg, 162.56 cm) elp MDM: 16:08 Accucheck ordered. ml 16:09 IV Saline Lock ordered. ml 16:09 Mobile Application Developer/Pulse Ox/q 15 min VS ordered. ml 16:09 Rhythm Strip to chart ordered. ml 16:10 CBC with Diff Ordered. EDMS 16:10 MED Profile Ordered. EDMS 16:10 Liver Profile Ordered. EDMS 16:10 Magnesium Level Ordered. EDMS 16:10 CIP Ordered. EDMS 16:10 Troponin Ordered. EDMS 16:10 HCG,Serum Qualitative Ordered. EDMS 16:10 ECG WITH READING ER PHYS+CARDIAG ordered. EDMS 16:11 Type & Screen Ordered. EDMS 16:11 CT Head Without Contrast Ordered. EDMS 16:11 NS 0.9% 1000 ml IV at 100 mL/hr continuous ordered. ml 16:12 -US Pelvic Non-Ob Complete Ordered. EDMS 16:12 DUPLEX SCAN LIMITED (DOPPLER)+US Ordered. EDMS 16:20 Ondansetron 4 mg IVP once ordered. ml 16:20 Fingerstick Blood Sugar Ordered. EDMS 17:07 Financial registration complete. [email or web address] 17:07 [facility] Payment Agreement was scanned into [employer] and attached to record. [email or web address] 17:12 CBC with Diff Reviewed. ml 17:12 MED Profile Reviewed. ml 17:12 CIP Reviewed. ml 17:12 Liver Profile Reviewed. ml 17:12 Magnesium Level Reviewed. ml 17:12 Troponin Reviewed. ml 17:12 HCG,Serum Qualitative Reviewed. ml 17:12 Type & Screen Reviewed. ml 17:12 Fingerstick Blood Sugar Reviewed. ml 17:12 Transvaginal NON- US Ordered. EDMS 17:32 BED REQUEST+ADM ordered. EDMS 17:34 UA Ordered. EDMS 17:34 Urine Culture Ordered. EDMS 17:44 Urine Toxicology Ordered. EDMS 18:24 Urine Toxicology Reviewed. ml 18:34 levETIRAcetam (20mg/kg) 1000 mg IVPB at 400 mL/hr once over 15 mins; dilute in 100mL NS ml or D5W ordered. 18:52 ED course: called to room as patient had witness tonic clonic sz - lasted 3 minutes. ml then post ictal. temp 101.5 degrees. will treat w tylenol and check cultures. dr venegas will be notifeid. mlg. 18:54 Acetaminophen Suppository 650 mg ID once ordered. ml 18:54 -Blood Culture (Adults Only), peripheral from different site, or from device/port/PICC ml etc. if present ordered. 18:54 Vital Signs ordered. ml 18:54 -Blood Culture Ordered. EDMS 18:55 Oxygen at 15 Liters/Minute NRB Mask ordered. ml 18:55 UA Reviewed. ml 18:55 CT Head Without Contrast Reviewed. ml 18:56 Misc. Nursing Order ordered. ml 18:56 Lactic Acid (Quispe tube on ice) Ordered. EDMS 18:57 Misc. Nursing Order ordered. ml 18:58 Chest, 1 View Ordered. EDMS 19:00 vancomycin (loading dose for pt. wt. >= 80kg) 2000 mg IVPB once ordered. ml 19:00 Piperacillin-Tazobactam 3.375 grams IVPB once over 30 mins; dilute in 50mL of NS or D5W ml ordered. 19:01 ED course: spoke to dr venegas - aware of current events. she is requesting zosyn and ml vanco one dose. blood cx, lactate, cxr ordered. mlg. 19:02 LORazepam 2 mg IVP once ordered. pml 19:03 ED course: spoke to dr nathan - aware of fever, recent sz. mlg. ml 19:07 BLOOD CULTURES Ordered. EDMS 19:09 -Blood Culture (Adults Only), peripheral from different site, or from device/port/PICC ml3 etc. if present complete. 20:18 LACTIC ACID LEVEL, LACTATE Ordered. EDMS 20:18 CBC WITH DIFFERENTIAL Ordered. EDMS 20:18 BASIC METABOLIC PROFILE Ordered. EDMS 20:18 MAGNESIUM LEVEL Ordered. EDMS 20:20 Admission / Observation Status ordered. EDMS 20:20 NPO DIET ordered. EDMS 20:28 vancomycin (loading dose for pt. wt. >= 80kg) 2000 mg IVPB once ordered. ko2 Administered Medications: 16:29 Drug: NS 0.9% 1000 ml [sodium chloride 0.9 % intravenous solution] Route: IV; Rate: 100 ld5 mL/hr; Site: right antecubital; 17:34 Drug: Ondansetron 4 mg [ondansetron HCl 2 mg/mL intravenous solution (2 mL)] Route: jf3 IVP; Site: right antecubital; 18:21 Follow up: Response: Nausea is decreased jf3 18:50 Drug: LORazepam 2 mg [lorazepam 2 mg/mL injection solution (1 mL)] Route: IVP; Site: pml right antecubital; 19:00 Drug: levETIRAcetam (20mg/kg) 1000 mg [levetiracetam 500 mg/5 mL intravenous solution] jf3 Route: IVPB; Rate: 400 mL/hr; Infused Over: 15 mins; Site: right antecubital; 19:39 Follow up: IV Status: Completed infusion; IV Intake: 100ml ko2 19:02 Drug: Acetaminophen 650 mg [acetaminophen 650 mg rectal suppository (1 supp)] Route: ID;pml 19:50 Drug: Piperacillin-Tazobactam 3.375 grams [piperacillin-tazobactam 3.375 gram ko2 intravenous solution] Route: IVPB; Infused Over: 30 mins; Site: right antecubital; 20:27 Follow up: IV Status: Completed infusion; IV Intake: 50ml ko2 20:28 Drug: vancomycin (loading dose for pt. wt. >= 80kg) 2000 mg [vancomycin 500 mg ko2 intravenous solution] Route: IVPB; Site: right antecubital; Critical Care Time: 19:07 Critical care time: Bedside Care: 90 minutes, Consultation: 10 minutes. Total time: 100 ml minutes Signatures: Dispatcher [employer] EDMS Anne Forbes MD MD ml Steven, Alison Castro, RN RN Erlin Obrien, Lithographic Press Operator Unit ml3 Wendi Mak RN RN pml Ogden, Kari, RN RN ko2 Todd Sevilla RN RN jf3 Alison Murphy, Reg Reg [email or web address] Merle Warner RN5 The chart was reviewed and I authenticate all verbal orders and agree with the evaluation and treatment provided.Corrections: (The following items were deleted from the chart) 20:32 20:18 BLOOD CULTURES ordered. EDNE EDNE Attachments: 17:07 [facility] Payment Agreement [email or web address] MTDD
[2016-09-16 22:00] VITALS: BP 124/63
--- NOTE | 2016-09-16 23:04 | ECGEPIP ---
Stationary ECG Study [facility] - ED Test Date: 2016-09-16 Pat Name: MOSHE TORRES Department: Room: - Gender: F Requirements Manager: ct : 1975 Requested By: Anne Forbes Order Number: [id number] Reading MD: Kamran Thomas Measurements Intervals [place] Rate: 79 P: 50 MO: 167 QRS: 26 QRSD: 97 T: 4 QT: 389 QTc: 447 Interpretive Statements SINUS RHYTHM Electronically Signed On 09-16-2016 23:04:22 EST by Kamran Thomas
[2016-09-16] MEDS: NS 1,000 ML IV SCH (23:30)
[2016-09-17] VITALS (12 sets, daily range): BP systolic 111–139; BP diastolic 54–80
[2016-09-17] MEDS: PIPERACILLIN/TAZOBACTAM SOD 3.375 GM in D5W 50 ML IV SCH ×2 (02:44→08:42)
[2016-09-17 04:51] LABS: BASO # 0.1 K/mm3 (0.0-0.2); BASO % 1.2 % (0.0-1.0); EOS % 0.4 % (0.0-3.0); LARGE UNSTAINED CELL # 0.2 K/mm3 (0.0-0.4); LYMPH # 2.1 K/mm3 (1.5-4.5); LYMPH % 16.7 % (24.0-44.0); MEAN CORPUSCULAR HEMOGLOBIN 25.6 pg (27.0-33.0); MEAN CORPUSCULAR HGB CONC 32.1 g/dl (32.0-36.5); MEAN CORPUSCULAR VOLUME 79.8 fl (80.0-96.0); MONO # 0.7 K/mm3 (0.0-0.8); NEUTROPHILS # 8.3 K/mm3 (1.8-7.7); NEUTROPHILS % 73.7 % (36.0-66.0); PLATELET COUNT, AUTOMATED 216 k/mm3 (150-450); RED CELL DISTRIBUTION WIDTH 14.5 % (11.5-14.5); WHITE BLOOD COUNT 11.3 K/mm3 (4.0-10.0)
[2016-09-17 05:02] LABS: ANION GAP 10 MEQ/L (8-16); BLOOD UREA NITROGEN 9 MG/DL (7-18); CALCIUM LEVEL 8.3 MG/DL (8.5-10.1); CARBON DIOXIDE LEVEL 24 MEQ/L (21-32); CHLORIDE LEVEL 110 MEQ/L (98-107); CREATININE FOR GFR 0.89 MG/DL (0.55-1.02); GLOMERULAR FILTRATION RATE > 60.0 (>60); GLUCOSE, FASTING 112 MG/DL (70-105); MAGNESIUM LEVEL 2.1 MG/DL (1.8-2.4); POTASSIUM SERUM 3.1 MEQ/L (3.5-5.1); SODIUM LEVEL 144 MEQ/L (136-145)
[2016-09-17] MEDS ORDERED: KCL 10MEQ IN 100ML SWI (KRUN) 10 MEQ in APPROPRIATE DILUENT 1 EA IV ONE ×4 (07:15→10:00)
[2016-09-17] MEDS: levETIRAcetam 250MG TABLET (KEPPRA) PO SCH ×2 (08:42→21:57)
[2016-09-17] MEDS ORDERED: LIDOCAINE 1% MDV 20ML VIAL As Ordered ONE (09:53)
[2016-09-17] MEDS ORDERED: POTASSIUM CHLORIDE INJ 10 MEQ in D5W/0.2% SODIUM CHLORIDE 1,000 ML IV SCH (10:00)
--- NOTE | 2016-09-17 10:16 | REP ---
Portable chest x-ray: Single view. History: Seizure, fever. Comparison study: February 04, 2014. Findings: EKG monitoring electrodes overlie the chest. The lungs are symmetrically aerated. No infiltrate is seen. Pleural angles are sharp. Heart size is normal. Pulmonary vasculature is not increased. Impression: No active disease. Signed by Jared Whiteside MD 09/17/2016 10:24 A
[2016-09-17] MEDS ORDERED: PROPOFOL 200 MG/20 ML VIAL As Ordered ONE (10:44)
[2016-09-17] MEDS ORDERED: MIDAZOLAM INJ 2 MG/2 ML VIAL (J2250) As Ordered ONE (10:44)
[2016-09-17] MEDS ORDERED: fentaNYL 100 MCG/2 ML INJECTION (J3010) As Ordered ONE (10:44)
[2016-09-17] MEDS ORDERED: LIDOCAINE 1% MDV 20ML VIAL SC ONE (11:21)
[2016-09-17] MEDS ORDERED: ONDANSETRON 4MG/2ML VIAL (J2405) IV PRN (11:30)
[2016-09-17] MEDS ORDERED: METOCLOPRAMIDE INJ 10MG/2ML VIAL (J2765) IV PRN (11:30)
[2016-09-17] MEDS ORDERED: PERCOCET 5MG/325MG TAB PO PRN (11:30)
[2016-09-17] MEDS ORDERED: fentaNYL 100 MCG/2 ML INJECTION (J3010) IV PRN (11:30)
[2016-09-17] MEDS ORDERED: LR 1,000 ML IV SCH (11:30)
--- NOTE | 2016-09-17 12:18 | CR ---
DATE OF CONSULTATION: 09/17/2016 HISTORY: A 40-year-old G14, [id number] female with a history of a seizure disorder presents with multiple seizures at home on the day of admission. She had previously been on Dilantin but had been off Dilantin for many years. This is her first major seizure in many years, although she does have small seizures occasionally. She also reports a history of a spontaneous 07/24/2016. She did not seek any care for that . She has been bleeding daily ever since the . It is generally light bleeding, but occasionally she will have heavier gushes of blood. She denies any abdominal pain. MEDICAL HISTORY: Seizure disorder. SURGICAL HISTORY: Dilation and curettage (D and C) procedure times one. FAMILY HISTORY: Colon cancer in her father. SOCIAL HISTORY: The patient is Wolfgang and lives with her and twelve children. ALLERGIES: No known drug allergies. PHYSICAL EXAMINATION: Blood pressure 142/68, heart rate 89, temperature initial 101.3, oxygen (O2) saturation 100%. No apparent distress. HEAD AND NECK EXAMINATION: Normal. LUNGS: Clear. HEART: Regular rate and rhythm. ABDOMEN: Nontender, soft, nondistended. PELVIC EXAMINATION: Deferred. EXTREMITIES: Nontender. ASSESSMENT: A 41-year-old G14, P12 female with a history of seizures presents with retained tissue following spontaneous . Recommend dilation, evacuation, and curettage (D, E, and C) procedure when medically stable. Ultrasound was reviewed, and there appears to be a small amount of retained products of conception present. The patient has been consented for D, E, and C procedure.
--- NOTE | 2016-09-17 12:46 | RO ---
DATE OF PROCEDURE: 09/17/2016 PREOPERATIVE DIAGNOSIS: Incomplete . POSTOPERATIVE DIAGNOSIS: Incomplete . PROCEDURE: Dilation, evacuation and curettage (D, E and C). SURGEON: Dr. Alexander Chandra HEAD LOADER: ANESTHESIA: Local with sedation. ESTIMATED BLOOD LOSS: Minimal. FINDINGS: Small amounts of products of conception. Otherwise normal uterus. OPERATIVE SUMMARY: Patient taken to the operating room where IV sedation was given. She was prepped and draped in sterile fashion in the dorsal lithotomy position. Speculum was placed in the vagina. The anterior lip of the cervix grasped with tenaculum. Cervix was injected circumferentially with 20 mL of 1% lidocaine. The cervix was dilated with tapered dilators. A #8 mm suction curette was placed through the internal os. The suction device was activated and gently rotated. Some products of conception were noted to be coming from through the suction tubing. Sharp curettage was performed. The uterine cavity was deemed to be empty. All instruments were removed. Sponge and instrument counts were correct. The patient went to recovery room in stable condition.
[2016-09-17] MEDS ORDERED: PIPERACILLIN/TAZOBACTAM SOD 3.375 GM in D5W MINI-BAG PLUS 50 ML IV SCH (14:00)
[2016-09-17] MEDS: NS 1,000 ML IV SCH (14:00)
[2016-09-17] MEDS: AMPICILLIN SOD/SULBACTAM SOD 3 GM in D5W MINI-BAG PLUS 100 ML IV SCH (21:57)
[2016-09-18] MEDS: AMPICILLIN SOD/SULBACTAM SOD 3 GM in D5W MINI-BAG PLUS 100 ML IV SCH ×2 (01:53→09:13)
[2016-09-18 06:00] VITALS: BP 133/66
[2016-09-18 07:21] LABS: BASO % 0.2 % (0.0-1.0); EOS # 0.4 K/mm3 (0.0-0.50); EOS % 5.2 % (0.0-3.0); LARGE UNSTAINED CELL # 0.2 K/mm3 (0.0-0.4); LARGE UNSTAINED CELL % 2.2 % (0.0-4.0); LYMPH # 1.3 K/mm3 (1.5-4.5); LYMPH % 17.2 % (24.0-44.0); MEAN CORPUSCULAR HEMOGLOBIN 25.5 pg (27.0-33.0); MEAN CORPUSCULAR HGB CONC 32.1 g/dl (32.0-36.5); MEAN CORPUSCULAR VOLUME 79.6 fl (80.0-96.0); MONO # 0.5 K/mm3 (0.0-0.8); MONO % 6.2 % (0.0-5.0); NEUTROPHILS # 5.1 K/mm3 (1.8-7.7); PLATELET COUNT, AUTOMATED 166 k/mm3 (150-450); RED CELL DISTRIBUTION WIDTH 13.4 % (11.5-14.5); WHITE BLOOD COUNT 7.4 K/mm3 (4.0-10.0)
[2016-09-18 07:39] LABS: ANION GAP 7 MEQ/L (8-16); BLOOD UREA NITROGEN 8 MG/DL (7-18); CALCIUM LEVEL 7.9 MG/DL (8.5-10.1); CARBON DIOXIDE LEVEL 27 MEQ/L (21-32); CHLORIDE LEVEL 109 MEQ/L (98-107); CREATININE FOR GFR 0.85 MG/DL (0.55-1.02); GLOMERULAR FILTRATION RATE > 60.0 (>60); GLUCOSE, FASTING 107 MG/DL (70-105); MAGNESIUM LEVEL 2.1 MG/DL (1.8-2.4); POTASSIUM SERUM 3.3 MEQ/L (3.5-5.1); SODIUM LEVEL 143 MEQ/L (136-145)
[2016-09-18] MEDS: levETIRAcetam 250MG TABLET (KEPPRA) PO SCH (09:14)
--- NOTE | 2016-09-18 10:51 | IPN ---
DATE: 09/17/2016 Patient is feeling well this morning. She is awake, appropriately interactive, pleasantly conversant. She is hungry but currently nothing by mouth. No further seizure activity. Temperature is 97.2, pulse is 88, respiratory rate 18, blood pressure 115/56, 97% on room air. Body mass index (BMI) is 50.6. She is awake, appropriately interactive, pleasantly conversant. Mucous membranes moist. Neck supple. Breathing is symmetrical and rested. Heart is regular rate and rhythm. White cell count 11.3, hemoglobin 9.4 and platelets of 216. Potassium is 3.1, creatinine 0.89. My assessment is as follows: This is a 41-year-old who presented with status epilepticus and fever, most likely related to endometritis. Plan is as follows: 1. Fever/endometritis. The patient has been seen in consultation by Dr. Chandra and has been taken to the operating room for dilatation and curettage and should likely improve markedly at this point. She did have elevated lactate at the time of presentation, which has much improved. 2. The patient had breakthrough seizures. The patient has been off epileptic drugs for some time. I believe underlying illness was the cause of her seizure disorder. I do not believe the patient has any interest in continuing antiepileptic drugs at the time of discharge. 3. The patient has anemia which is likely iron deficiency anemia due to her bleeding, complicated of course by her endometritis. Would likely benefit from an iron supplement at the time of discharge.
[2016-09-18] MEDS ORDERED: AUGM875T27 PO (11:27)
[2016-09-18] MEDS ORDERED: IRON65TA PO (11:27)
--- NOTE | 2016-09-18 19:10 | DSES ---
DATE OF ADMISSION: 09/16/2016 DATE OF DISCHARGE: 09/18/2016 Specialists involved in the care include Dr. Chandra. No complications of her stay. Procedures performed during her stay included a dilatation and curettage. DISCHARGE DIAGNOSES: 1. Fever and endometritis. 2. Status epilepticus. 3. Iron deficiency anemia, suspected. SUMMARY OF HER HOSPITALIZATION: This is a 41-year-old female with seizure disorder, not on antiepileptic drugs, who presented with seizures and vaginal bleeding. She had multiple episodes of seizures, qualifying her as status epilepticus and was started on Keppra . Was found to have endometritis. Was seen in consultation by [employer] and taken to the operating room for a dilatation and curettage, likely had retained products of conception from a spontaneous . She did well during her stay and improved markedly. Tolerated antibiotics. Was afebrile. Was feeling better. Tolerating a diet. White cell count improved. She was anemic with a hemoglobin of 8.6 on the day of discharge. Iron supplementation was begun. She also had hypokalemia and was pursuing dietary improvement. On the day of discharge, she is feeling well. Temperature is 99.6, pulse 84, respiratory rate 17, blood pressure 133/66, 96% on room air. Breathing is symmetrical and rested. Heart is regular rate and rhythm. Abdomen is soft, doughy, nontender. White cell count 7.4, hemoglobin 8.6, and platelets of 166, potassium 3.3, creatinine 0.85. DISCHARGE INSTRUCTIONS: Include the followin. Followup with primary care provider as needed. 2. Followup with Dr. Chandra as needed. 3. Activity as tolerated. 4. She is given information about seizure precautions. 5. Diet as tolerated. 6. Given a prescription for: - Augmentin 875 mg by mouth twice daily for 16 doses - iron supplement to be taken daily I recommended the use of antiepileptic drugs, but she would prefer not to take them.
--- NOTE | 2016-09-19 11:52 | EDDOCDS ---
Nurse's Notes [facility] Name: Annette Gerardo Age: 41 yrs Sex: Female : 1975 Arrival Date: 09/16/2016 Time: 15:31 Bed 2 Private MD: NO PRIMARY PHYSICIAN, . Diagnosis: Epilepsy and recurrent seizures;Abnormal product of conception, unspecified-retained; vaginal bleeding Presentation: 09/16 15:45 Adult Sepsis Screening: The patient does not have new or worsening altered mentation. jf3 Patient's respiratory rate is less than 22. Systolic blood pressure is greater than 100. Patient has a qSOFA score of 0- Negative Sepsis Screen. Suicide/Homicide risk assessment- the patient denies having any suicidal and/or homicidal ideations and does not present with any other emotional, behavioral or mental health complaints. 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 Transition of care: patient was not received from another setting of care. 15:45 Method Of Arrival: Walkin/Carried/Asstd 3 15:45 Acuity: GEE Level 3 jf3 15:59 Presenting complaint: Mother states: Family states pt had a seizure this AM around 7am jf3 today. Another seizure around 9am today with vomiting and pt fell and may have hit head. Another seizure at 1pm with vomiting. Family states recent miscarriage in mid July with on and off bleeding with varying heaviness in flow ever since. 17:10 Red Flag criteria, patient assessed and taken directly to a bed. dls Triage Assessment: 15:59 General: Appears sleepy and tired. Pain: Location: forehead. Pt Declines HIV testing. jf3 The patient is triaged at the bedside. See Assessment in Nurses Notes section of ED record. Neurological: Level of Consciousness is awake, alert, Oriented to person, place, time, Facial symmetry appears normal, Pupils are PERRLA. Cardiovascular: Capillary refill < 3 seconds. Respiratory: Airway is patent Respiratory effort is even, unlabored, Respiratory pattern is regular, symmetrical. Derm: Skin is normal. 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 none - PMHx: Seizures; - PSHx: none; - Social history: Smoking status: Patient states was never smoker of tobacco. No barriers to communication noted, The patient speaks fluent Divehi. - Family history: Not pertinent. - : The pt / caregiver states he / she is not on anticoagulants. Home medication list is obtained from family members. - Exposure Risk Screening:: None identified. Screenin:07 Screening information is obtained from family members. Fall risk: No risks identified. jf3 Assistance ADL's: requires no assistance with activities of daily living. Abuse/DV Screen: The patient / caregiver reports he/she is: not in a situation that causes fear, pain or injury. Nutritional screening: No deficits noted. Advance Directives: Currently, there is no health care proxy. There is no active DNR order. home support is adequate. Assessment: 16:07 Adult Sepsis Screening: The patient does not have new or worsening altered mentation. jf3 Patient's respiratory rate is less than 22. Systolic blood pressure is greater than 100. Patient has a qSOFA score of 0- Negative Sepsis Screen. General: Appears in no apparent distress, sleepy. Behavior is cooperative. Pain: Location: forehead. Neurological: Level of Consciousness is awake, alert, Oriented to person, place, time, Wrist Liner are equal bilaterally Moves all extremities. Facial symmetry appears normal, Pupils are PERRLA. Cardiovascular: Capillary refill < 3 seconds Heart tones S1 S2 present Chest pain is denied. Respiratory: Airway is patent Respiratory effort is even, unlabored, Respiratory pattern is regular, symmetrical, Breath sounds are clear bilaterally. Derm: Skin is normal. 17:00 General: Appears sleepy. Behavior is drowsy, quiet. Neurological: Level of jf3 Consciousness is post ictal, Oriented to Pt intermittently confused. Respiratory: Airway is patent Respiratory effort is even, unlabored, Respiratory pattern is regular, symmetrical. GI: Reports nausea, vomiting. 18:15 General: Appears in no apparent distress, Behavior is drowsy, quiet. Neurological: jf3 Level of Consciousness is awake, post ictal. Respiratory: Airway is patent Respiratory effort is even, unlabored, Respiratory pattern is regular, symmetrical. 18:50 General: Pt noted by staff to be actively seizing in room on stretcher. Seizure lasting jf3 approx 1 min in length. Non-rebreather O2 placed on pt. Pt suctioned orally. Nasal trumpet placed in right nare by Dr Quispe. Pt safety maintained, IV site maintained. Temporal temp checked to be 101.3 with a follow up rectal of 99.3. Dr Quispe aware and ordered KY Acetaminophen. Ativan 2mg IV given by VI Mak at 1850. Keppra 1000mg IVPB hung at 1900. Family returned to room and informed of event by Dr Quispe. 19:15 General: Appears in no apparent distress, Behavior is drowsy. Neurological: Level of ko2 Consciousness is post ictal. Respiratory: Airway is compromised Respiratory effort is even, unlabored, Respiratory pattern is regular, symmetrical. Derm: Skin is normal. 20:12 General: critical lab value of latic acid of 7.[address] Venegas.. cp1 20:46 General: Appears in no apparent distress, Behavior is cooperative. Neurological: Level ko2 of Consciousness is awake, lethargic. Respiratory: Airway is patent Respiratory effort is even, unlabored. Derm: Skin is normal. Vital Signs: 15:35 BP 154 / 86; Pulse 91; Resp 18; Temp 98.4(O); Pulse Ox 100% on R/A; Weight 117 kg (R); elp Height 5 ft. 4 in. (162.56 cm) (R); Pain 0/10; 15:51 BP 140 / 65 (auto/); ko2 15:52 Pulse 81 MON; Pulse Ox 98% ; ko2 15:59 Pulse 81 MON; Pulse Ox 100% ; ko2 16:00 BP 148 / 68 (auto/); ko2 16:30 BP 148 / 68 (auto/); ko2 16:30 Pulse 80 MON; Pulse Ox 98% ; ko2 17:22 BP 131 / 61 (auto/); ko2 17:22 Pulse 85 MON; Pulse Ox 98% ; ko2 17:30 BP 132 / 65 (auto/); ko2 17:30 Pulse 90 MON; Pulse Ox 100% ; ko2 17:44 Pulse 84 MON; Pulse Ox 99% ; ko2 17:45 BP 124 / 75 (auto/); ko2 18:00 BP 117 / 58 (auto/); ko2 18:00 Pulse 82 MON; Pulse Ox 98% ; ko2 18:15 BP 116 / 60 (auto/); ko2 18:15 Pulse 84 MON; Pulse Ox 97% ; ko2 18:29 Pulse 82 MON; Pulse Ox 97% ; ko2 18:30 BP 116 / 57 (auto/); ko2 18:44 Pulse 84 MON; Pulse Ox 99% ; ko2 18:45 BP 114 / 61 (auto/); ko2 19:01 Temp 101.3(TE); pml 19:01 Temp 99.3(R); pml 19:15 Pulse 114 MON; Pulse Ox 100% ; ko2 19:15 BP 123 / 65 (auto/); ko2 19:37 BP 142 / 68 (auto/); ko2 19:37 Pulse 106 MON; ko2 19:56 BP 115 / 57 (auto/); ko2 19:58 Pulse 95 MON; Pulse Ox 100% ; ko2 20:00 BP 130 / 60 (auto/); ko2 20:00 Pulse 101 MON; Pulse Ox 100% ; ko2 20:14 Pulse Ox 100% ; ko2 20:15 BP 123 / 61 (auto/); ko2 20:16 Pulse Ox 97% ; ko2 20:30 BP 110 / 67 (auto/); ko2 15:35 Body Mass Index 44.27 (117.00 kg, 162.56 cm) elp Vitals: 15:35 Log In Time: September 16, 2016 at 15:34. elp 15:36 RN notified that patient meets Red Flag criteria. elp ED Course: 15:34 Patient visited by Deepti Welsh PCA. elp 15:34 Patient moved to Waiting elp 15:36 Patient visited by Deepti Welsh PCA. elp 15:36 NO PRIMARY PHYSICIAN, . is Private Physician. elp 15:36 Jameel Hankins, RN is Primary Nurse. elp 15:36 Patient moved to 2 elp 15:46 Triage Initiated jf3 15:57 Anne Forbes MD is Attending Physician. ml 15:57 Patient visited by Anne Forbes MD. ml 16:07 The patient / caregiver is instructed regarding the plan of care and ED course. Seizure jf3 precautions initiated. bus monitor on. Pulse ox on. NIBP on. 16:08 Patient visited by Todd Sevilla,VI. jf3 16:32 Patient moved to [facility] br3 16:33 EKG done. (by ED staff). Reviewed by Anne Forbes MD. ct3 16:38 Patient visited by Emelina Lewis PCA. ct3 17:07 [facility] Payment Agreement was scanned into OPPRTUNITY and attached to record. ks16 17:12 Inserted saline lock: 20 gauge in right antecubital area The patient tolerated the jf3 procedure well. placed by RN Kimmie Monsivais. No procedures done that require assistance. 17:14 Patient moved to 2 br3 17:15 Patient name changed from Annette\S\\S\Swartzentruber\S\ to Annette\S\ \S\Swartzentruber. EDMS 17:38 Patient visited by Todd Sevilla RN. jf3 17:50 Urine Toxicology Sent. kpj 17:50 Urine Culture Sent. kpj 17:50 UA Sent. kpj 18:21 Patient visited by Todd Sevilla RN. jf3 18:34 CT Head Without Contrast Returned. EDMS 18:46 Patito Venegas is Hospitalizing Provider. ml 18:56 Tammy Lewis,VI is Primary Nurse. ko2 19:03 Patient visited by Wendi Mak RN. pml 19:05 Patient visited by Brian Brasher PCA. kb5 19:15 Patient visited by Todd Sevilla,VI. jf3 19:16 Patient visited by Tammy Lewis,VI. ko2 19:17 -US Pelvic Non-Ob Complete Returned. EDMS 19:39 Lactic Acid (Quispe tube on ice) Sent. ko2 19:39 BLOOD CULTURES Sent. ko2 20:04 Primary Nurse role handed off by Jameel Hankins RN jm 22:04 T-Sheet-- Draft Copy was scanned into OPPRTUNITY and attached to record. klr 09/17 09:53 ECG/EKG was scanned into OPPRTUNITY and attached to record. gb Administered Medications: 09/16 16:29 Drug: NS 0.9% 1000 ml [sodium chloride 0.9 % intravenous solution] Route: IV; Rate: 100 ld5 mL/hr; Site: right antecubital; 17:34 Drug: Ondansetron 4 mg [ondansetron HCl 2 mg/mL intravenous solution (2 mL)] Route: jf3 IVP; Site: right antecubital; 18:21 Follow up: Response: Nausea is decreased jf3 18:50 Drug: LORazepam 2 mg [lorazepam 2 mg/mL injection solution (1 mL)] Route: IVP; Site: pml right antecubital; 19:00 Drug: levETIRAcetam (20mg/kg) 1000 mg [levetiracetam 500 mg/5 mL intravenous solution] jf3 Route: IVPB; Rate: 400 mL/hr; Infused Over: 15 mins; Site: right antecubital; 19:39 Follow up: IV Status: Completed infusion; IV Intake: 100ml ko2 19:02 Drug: Acetaminophen 650 mg [acetaminophen 650 mg rectal suppository (1 supp)] Route: KY;pml 19:50 Drug: Piperacillin-Tazobactam 3.375 grams [piperacillin-tazobactam 3.375 gram ko2 intravenous solution] Route: IVPB; Infused Over: 30 mins; Site: right antecubital; 20:27 Follow up: IV Status: Completed infusion; IV Intake: 50ml ko2 20:28 Drug: vancomycin (loading dose for pt. wt. >= 80kg) 2000 mg [vancomycin 500 mg ko2 intravenous solution] Route: IVPB; Site: right antecubital; Intake: 19:39 IV: 100.00ml; Total: 100.00ml. ko2 20:27 IV: 50.00ml; Total: 150.00ml. ko2 Order Results: Lab Order: CBC with Diff; SPEC'M 09/16/16 16:25 Test: WHITE BLOOD COUNT; Value: 16.6; Range: 4.0-10.0; Abnormal: Above high normal; Units: K/mm3; Status: F Test: RED BLOOD COUNT; Value: 4.10; Range: 4.00-5.40; Units: M/mm3; Status: F Test: HEMOGLOBIN; Value: 10.3; Range: 12.0-16.0; Abnormal: Below low normal; Units: g/dl; Status: F Test: HEMATOCRIT; Value: 33.1; Range: 36.0-47.0; Abnormal: Below low normal; Units: %; Status: F Test: MEAN CORPUSCULAR VOLUME; Value: 80.7; Range: 80.0-96.0; Units: fl; Status: F Test: MEAN CORPUSCULAR HEMOGLOBIN; Value: 25.0; Range: 27.0-33.0; Abnormal: Below low normal; Units: pg; Status: F Test: MEAN CORPUSCULAR HGB CONC; Value: 31.0; Range: 32.0-36.5; Abnormal: Below low normal; Units: g/dl; Status: F Test: RED CELL DISTRIBUTION WIDTH; Value: 14.5; Range: 11.5-14.5; Units: %; Status: F Test: PLATELET COUNT, AUTOMATED; Value: 232; Range: 150-450; Units: k/mm3; Status: F Test: NEUTROPHILS %; Value: 87.8; Range: 36.0-66.0; Abnormal: Above high normal; Units: %; Status: F Test: LYMPH %; Value: 6.9; Range: 24.0-44.0; Abnormal: Below low normal; Units: %; Status: F Test: MONO %; Value: 3.9; Range: 0.0-5.0; Units: %; Status: F Test: EOS %; Value: 0.1; Range: 0.0-3.0; Units: %; Status: F Test: BASO %; Value: 0.4; Range: 0.0-1.0; Units: %; Status: F Test: LARGE UNSTAINED CELL %; Value: 0.9; Range: 0.0-4.0; Units: %; Status: F Test: NEUTROPHILS #; Value: 14.6; Range: 1.8-7.7; Abnormal: Above high normal; Units: K/mm3; Status: F Test: LYMPH #; Value: 1.3; Range: 1.5-4.5; Abnormal: Below low normal; Units: K/mm3; Status: F Test: MONO #; Value: 0.7; Range: 0.0-0.8; Units: K/mm3; Status: F Test: EOS #; Value: 0.0; Range: 0.0-0.50; Units: K/mm3; Status: F Test: BASO #; Value: 0.1; Range: 0.0-0.2; Units: K/mm3; Status: F Test: LARGE UNSTAINED CELL #; Value: 0.1; Range: 0.0-0.4; Units: K/mm3; Status: F Lab Order: MED Profile; SPEC'M 09/16/16 16:25 Test: GLUCOSE, FASTING; Value: 108; Range: 70-105; Abnormal: Above high normal; Units: MG/DL; Status: F Test: BLOOD UREA NITROGEN; Value: 11; Range: 7-18; Units: MG/DL; Status: F Test: CREATININE FOR GFR; Value: 0.82; Range: 0.55-1.02; Units: MG/DL; Status: F Test: SODIUM LEVEL; Range: 136-145; Units: MEQ/L; Status: I Test: POTASSIUM SERUM; Range: 3.5-5.1; Units: MEQ/L; Status: I Test: CHLORIDE LEVEL; Range: 98-107; Units: MEQ/L; Status: I Test: CARBON DIOXIDE LEVEL; Range: 21-32; Units: MEQ/L; Status: I Test: ANION GAP; Range: 8-16; Units: MEQ/L; Status: I Test: CALCIUM LEVEL; Range: 8.5-10.1; Units: MG/DL; Status: I Test: GLOMERULAR FILTRATION RATE; Value: > 60.0; Range: >60; Status: F Test: SODIUM LEVEL; Value: 142; Range: 136-145; Units: MEQ/L; Status: F Test: POTASSIUM SERUM; Value: 4.0; Range: 3.5-5.1; Units: MEQ/L; Status: F Test: CHLORIDE LEVEL; Value: 107; Range: 98-107; Units: MEQ/L; Status: F Test: CARBON DIOXIDE LEVEL; Value: 25; Range: 21-32; Units: MEQ/L; Status: F Test: ANION GAP; Value: 10; Range: 8-16; Units: MEQ/L; Status: F Test: CALCIUM LEVEL; Value: 8.8; Range: 8.5-10.1; Units: MG/DL; Status: F Test Note: ; Units are mL/min/1.73 m2 Chronic Kidney Disease Staging per NKF: Stage I & II GFR >=60 Normal to Mildly Decreased Stage III GFR 30-59 Moderately Decreased Stage IV GFR 15-29 Severely Decreased Stage V GFR <15 Very Little GFR Left ESRD GFR <15 on ADMISSION NURSE Lab Order: Liver Profile; SPEC'M 09/16/16 16:25 Test: AST/SGOT; Value: 24; Range: 15-37; Units: U/L; Status: F Test: ALT/SGPT; Value: 27; Range: 12-78; Units: U/L; Status: F Test: ALKALINE PHOSPHATASE; Value: 77; Range: 45-117; Units: U/L; Status: F Test: BILIRUBIN,TOTAL; Value: 0.2; Range: 0.2-1.0; Units: MG/DL; Status: F Test: BILIRUBIN,DIRECT; Value: < 0.1; Range: 0.0-0.2; Units: MG/DL; Status: F Test: TOTAL PROTEIN; Value: 8.2; Range: 6.4-8.2; Units: GM/DL; Status: F Test: ALBUMIN; Value: 4.1; Range: 3.2-5.2; Units: GM/DL; Status: F Test: ALBUMIN/GLOBULIN RATIO; Value: 1.00; Range: 1.00-1.93; Status: F Lab Order: Magnesium Level; [facility]09/16[facility] 16:25 Test: MAGNESIUM LEVEL; Value: 2.1; Range: 1.8-2.4; Units: MG/DL; Status: F Lab Order: CIP; SPEC'09/16/16 16:25 Test: CPK CREATINE PHOSPHOKINASE; Value: 255; Range: 26-192; Abnormal: Above high normal; Units: U/L; Status: F Test: CK-MB VALUE MASS; Value: 1.8; Range: 0.0-3.6; Units: NG/ML; Status: F Test: MB/CK RELATIVE INDEX; Value: 0.70; Range: < OR =4; Status: F Test Note: ; DIAGNOSIS CRITERIA MMB ng/ml Relative Index (RI) NON-AMI < or = 5 N/A QUISPE ZONE > 5 < or = 4 AMI > 5 > 4 Lab Order: Troponin; SPEC09/16/16 16:25 Test: TROPONIN I; Value: < 0.02; Range: < 0.10; Units: NG/ML; Status: F Test Note: ; Troponin I Reference Interval for [facility] LOCI: 99th Percentile= 0.00-0.045 ng/ml Risk Stratification: <= 0.10 ng/ml Decreased Risk for Adverse Clinical Events. 0.10-1.50 ng/ml Increased Risk for Adverse Clinical Events. Evaluation of additional criterion and/or repeat testing in 2-6 hours is suggested to rule out myocardial damage. >= 1.50 ng/ml Indicative of Myocardial Injury. Lab Order: HCG,Serum Qualitative; SPEC' 09/16/16 16:25 Test: HCG, SERUM QUALITATIVE; Value: NEGATIVE; Range: NEGATIVE; Status: F Lab Order: Type & Screen; [facility]' 09/16/16 16:25 Test: BLOOD TYPE; Value: A NEG; Status: F Test: AB SCREEN(INDIRECT MAURI) MAN; Value: NEGATIVE; Status: F Lab Order: Fingerstick Blood Sugar; SPEC' 09/16/16 16:12 Test: BEDSIDE GLUCOSE; Value: 97; Range: 70-105; Units: MG/DL; Status: F Lab Order: UA; SPEC' 09/16/16 17:43 Test: APPEARANCE, URINE; Value: TURBID; Range: CLEAR; Abnormal: Above high normal; Status: F Test: COLOR, URINE; Value: YELLOW; Range: YELLOW; Status: F Test: PH,URINE; Value: 5.0; Range: 5.0-9.0; Units: UNITS; Status: F Test: SPECIFIC GRAVITY URINE AUTO; Value: 1.012; Range: 1.002-1.035; Status: F Test: PROTEIN, URINE AUTO; Value: NEGATIVE; Range: NEGATIVE; Units: mg/dL; Status: F Test: GLUCOSE, URINE (UA) AUTO; Value: NEGATIVE; Range: NEGATIVE; Units: mg/dL; Status: F Test: KETONE, URINE AUTO; Value: NEGATIVE; Range: NEGATIVE; Units: mg/dL; Status: F Test: UROBILINOGEN, URINE AUTO; Value: 0.2; Range: 0.0-2.0; Units: mg/dL; Status: F Test: BILIRUBIN, URINE AUTO; Value: NEGATIVE; Range: NEGATIVE; Status: F Test: NITRITE, URINE AUTO; Value: NEGATIVE; Range: NEGATIVE; Status: F Test: LEUKOCYTE ESTERASE, URINE AUTO; Value: TRACE; Range: NEGATIVE; Abnormal: Above high normal; Status: F Test: BLOOD, URINE BLOOD; Value: 3+; Range: NEGATIVE; Abnormal: Above high normal; Status: F Test: WBC, URINE AUTO; Value: 9; Range: 0-3; Abnormal: Above high normal; Units: /HPF; Status: F Test: RBC, URINE AUTO; Value: 90; Range: 0-3; Abnormal: Above high normal; Units: /HPF; Status: F Test: BACTERIA, URINE AUTO; Value: 1+; Range: NEGATIVE; Abnormal: Above high normal; Status: F Test: SQUAMOUS EPITHELIAL CELL UR AU; Value: 1; Range: 0-6; Units: /HPF; Status: F Test: HYALINE CAST, URINE AUTO; Value: 0; Range: 0-1; Units: /LPF; Status: F Test: AMORPHOUS SEDIMENT; Value: SMALL; Range: NEGATIVE; Abnormal: Above high normal; Status: F Test: URIC ACID CRYSTALS; Value: MODERATE; Range: NONE; Status: F Lab Order: Urine Toxicology; SPEC'M 09/16/16 17:43 Test: AMPHETAMINES LEVEL URINE; Value: NEGATIVE; Range: NEGATIVE; Status: F Test: BARBITURATES URINE; Value: NEGATIVE; Range: NEGATIVE; Status: F Test: BENZODIAZEPINES URINE; Value: NEGATIVE; Range: NEGATIVE; Status: F Test: CANNABINOIDS URINE; Value: NEGATIVE; Range: NEGATIVE; Status: F Test: COCAINE METABOLITE URINE; Value: NEGATIVE; Range: NEGATIVE; Status: F Test: METHADONE URINE; Value: NEGATIVE; Range: NEGATIVE; Status: F Test: OPIATES URINE; Value: NEGATIVE; Range: NEGATIVE; Status: F Test: TRICYCLIC ANTIDEPRESS URINE; Value: NEGATIVE; Range: NEGATIVE; Status: F Test Note: ; ALL PRESUMPTIVE POSITIVE FINDINGS ARE UNCONFIRMED NORMAL VALUES THRESHOLD IN NG/ML AMPHETAMINES 1000 METHAMPHETAMINES 1000 BARBITURATES 300 BENZODIAZEPINES 300 CANNABINOIDS (THC) 50 COCAINE METABOLITE 300 METHADONE 300 OPIATES 300 PHENCYCLIDINE 25 TRICYCLIC ANTIDEPRESSANTS 1000 RESULTS ARE FOR MEDICAL PURPOSES ONLY. ALL URINE SPECIMENS WILL BE SAVED FOR 3 DAYS. IF CONFIRMATION OF A PRESUMPTIVE POSTIVE SCREEN RESULT IS DESIRED, CALL CHEMISTRY ([phone]) AND REQUEST URINE TO BE SENT TO REFERENCE LAB. FOR A LIST OF CLOSELY RELATED COMPOUNDS PLEASE CALL THE LAB. Lab Order: Lactic Acid (Quispe tube on ice); SPEC'M 09/16/16 19:35 Test: LACTIC ACID LEVEL, LACTATE; Value: 7.7; Range: 0.4-2.0; Abnormal: Above upper panic limits; Units: MMOL/L; Status: F Radiology Order: CT Head Without Contrast Test: CT Head Without Contrast REASON FOR EXAMINATION: sz x 3; ; ; TECHNIQUE: Multiple axial brain CT scan sections were obtained from base to vertex without contrast a; dministration.; COMMENTS:; The study shows normal configuration of sella turcica. There are no intra or extra-axial collections.; There is no mass effect or midline shift. There is no evidence of hematoma formation. No hydrocephal; us is present. No abnormal calcifications are noted.; No significant abnormalities are seen either in the posterior fossa or supratentorial compartment.; The left maxillary sinusitis is seen. The mastoid air cells are patent.; IMPRESSION:; No evidence of acute intracranial pathology. Sinusitis; Thank you for your kind referral of this patient.; ; Radiology Order: -US Pelvic Non-Ob Complete Test: -US Pelvic Non-Ob Complete REASON FOR EXAMINATION: + miscarriage 07/26 bldg since; ; CLINICAL HISTORY: Miscarriage.; ; TECHNIQUE: High resolution examination consisting of transabdominal and transvaginal ultrasound perf; ormed. TV exam is nondiagnostic.; ; FINDINGS:; Uterine size: 14.5 x 5.1 x 6.8.; ; AP endometrial thickness: 10.6 mm. Hyperechoic area seen in endometrium with blood flow ? polyp vers; us mass versus RPOC.; Bilateral ovaries are within normal limits.; ; Right ovary measures 2.7 x 1.2 x 3.0. RI: 0.47. Abnormality: WNL - best seen with linear probe.; ; Left ovary measures 2.5 x 1.9 x 2.1. RI: 0.53. Abnormality: WNL - best seen with linear probe.; ; Enlarged uterus measuring 5.2 x 4.1 x 4.5 mm.; Bladder measures 9.3 x 9.2 x 10.6 cm. Moderate bladder debris seen.; ; IMPRESSION:; Hyperechoic area seen in endometrium with blood flow ? polyp versus mass versus RPOC. Clinical hieu; elation is recommended. Consider short-term follow-up.; Moderate bladder debris seen.; ; Thank you for your kind referral of this patient. We appreciate the opportunity to participate in thi; s patient's care.; ; Outcome: 18:47 Decision to Hospitalize by Provider. 21:39 Discharge Assessment: Patient awake, alert and oriented x 3. No cognitive and/or ko2 functional deficits noted. Patient verbalized understanding of disposition instructions. patient administered narcotics - no. The following High Risk Discharge criteria are identified: None. Admitted to ICU accompanied by nurse, accompanied by tech, via stretcher, on monitor, with chart. Condition: stable. Property :Personal belongings accompany Pt. 21:42 No special radiology studies were completed. Admission hand-off: Report called to jose martin Hemphill RN ICU. 21:53 Patient left the ED. massiel Signatures: Dispatcher [employer] EDMS Anne Forbes MD MD ml Jobson, Karen, RN RN rosales Harris, Alison Castro, RN Layne Beasley RN VI dls Becyk, Stacy, Reg Reg gb Bainbridge, Brian, CAR CHASER CAR CHASER kb5 Viktoriya Mcelroy br3 Carleen Alexander,AFTER SCHOOL COUNSELOR AFTER SCHOOL COUNSELOR cp1 Merle Warner,RN RN ld5 Emelina Lewis, CAR CHASER CAR CHASER ct3 Wendi Mak,RN RN Deepti Georges, CAR CHASER CAR CHASER corbyp Tammy LewisRN RN Todd Rubalcava,RN RN jf3 Alison Murphy, Reg Reg ks16 Redramírez, Sri oliverr Jared, Bruce, CAR CHASER CAR CHASER jmv Corrections: (The following items were deleted from the chart) 16:09 15:59 15, 2, Living 13 3 3 Chart Complete MTDD
--- NOTE | 2016-09-19 11:52 | EDDOCDS ---
Physician Documentation [facility] Name: Annette Gerardo Age: 41 yrs Sex: Female : 1975 Arrival Date: 09/16/2016 Time: 15:31 Bed 2 Private MD: NO PRIMARY PHYSICIAN, . Disposition: 09/16 19:07 Critical Care:. ml Disposition: 09/16/16 18:47 Hospitalization ordered by Patito Venegas for Inpatient Admission. Preliminary diagnosis are Epilepsy and recurrent seizures, Abnormal product of conception, unspecified - retained; vaginal bleeding. - Bed requested for ICU. - Status is Inpatient Admission. massiel - Condition is Stable. - Problem is new. - Symptoms are unchanged. Historical: - Allergies: no known allergies; - Home Meds: 1. none - PMHx: Seizures; - PSHx: none; - Social history: Smoking status: Patient states was never smoker of tobacco. No barriers to communication noted, The patient speaks fluent Romansh. - Family history: Not pertinent. - : The pt / caregiver states he / she is not on anticoagulants. Home medication list is obtained from family members. - Exposure Risk Screening:: None identified. 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 4 in. (162.56 cm) (R); Pain 0/10; 15:51 BP 140 / 65 (auto/); ko2 15:52 Pulse 81 MON; Pulse Ox 98% ; ko2 15:59 Pulse 81 MON; Pulse Ox 100% ; ko2 16:00 BP 148 / 68 (auto/); ko2 16:30 BP 148 / 68 (auto/); ko2 16:30 Pulse 80 MON; Pulse Ox 98% ; ko2 17:22 BP 131 / 61 (auto/); ko2 17:22 Pulse 85 MON; Pulse Ox 98% ; ko2 17:30 BP 132 / 65 (auto/); ko2 17:30 Pulse 90 MON; Pulse Ox 100% ; ko2 17:44 Pulse 84 MON; Pulse Ox 99% ; ko2 17:45 BP 124 / 75 (auto/); ko2 18:00 BP 117 / 58 (auto/); ko2 18:00 Pulse 82 MON; Pulse Ox 98% ; ko2 18:15 BP 116 / 60 (auto/); ko2 18:15 Pulse 84 MON; Pulse Ox 97% ; ko2 18:29 Pulse 82 MON; Pulse Ox 97% ; ko2 18:30 BP 116 / 57 (auto/); ko2 18:44 Pulse 84 MON; Pulse Ox 99% ; ko2 18:45 BP 114 / 61 (auto/); ko2 19:01 Temp 101.3(TE); pml 19:01 Temp 99.3(R); pml 19:15 Pulse 114 MON; Pulse Ox 100% ; ko2 19:15 BP 123 / 65 (auto/); ko2 19:37 BP 142 / 68 (auto/); ko2 19:37 Pulse 106 MON; ko2 19:56 BP 115 / 57 (auto/); ko2 19:58 Pulse 95 MON; Pulse Ox 100% ; ko2 20:00 BP 130 / 60 (auto/); ko2 20:00 Pulse 101 MON; Pulse Ox 100% ; ko2 20:14 Pulse Ox 100% ; ko2 20:15 BP 123 / 61 (auto/); ko2 20:16 Pulse Ox 97% ; ko2 20:30 BP 110 / 67 (auto/); ko2 15:35 Body Mass Index 44.27 (117.00 kg, 162.56 cm) elp MDM: 16:08 Accucheck ordered. ml 16:09 IV Saline Lock ordered. ml 16:09 Refractory Repairer/Pulse Ox/q 15 min VS ordered. ml 16:09 Rhythm Strip to chart ordered. ml 16:10 CBC with Diff Ordered. EDMS 16:10 MED Profile Ordered. EDMS 16:10 Liver Profile Ordered. EDMS 16:10 Magnesium Level Ordered. EDMS 16:10 CIP Ordered. EDMS 16:10 Troponin Ordered. EDMS 16:10 HCG,Serum Qualitative Ordered. EDMS 16:10 ECG WITH READING ER PHYS+CARDIAG ordered. EDMS 16:11 Type & Screen Ordered. EDMS 16:11 CT Head Without Contrast Ordered. EDMS 16:11 NS 0.9% 1000 ml IV at 100 mL/hr continuous ordered. ml 16:12 -US Pelvic Non-Ob Complete Ordered. EDMS 16:12 DUPLEX SCAN LIMITED (DOPPLER)+US Ordered. EDMS 16:20 Ondansetron 4 mg IVP once ordered. ml 16:20 Fingerstick Blood Sugar Ordered. EDMS 17:07 Financial registration complete. [email or web address] 17:07 [facility] Payment Agreement was scanned into [employer] and attached to record. [email or web address] 17:12 CBC with Diff Reviewed. ml 17:12 MED Profile Reviewed. ml 17:12 CIP Reviewed. ml 17:12 Liver Profile Reviewed. ml 17:12 Magnesium Level Reviewed. ml 17:12 Troponin Reviewed. ml 17:12 HCG,Serum Qualitative Reviewed. ml 17:12 Type & Screen Reviewed. ml 17:12 Fingerstick Blood Sugar Reviewed. ml 17:12 Transvaginal NON- US Ordered. EDMS 17:32 BED REQUEST+ADM ordered. EDMS 17:34 UA Ordered. EDMS 17:34 Urine Culture Ordered. EDMS 17:44 Urine Toxicology Ordered. EDMS 18:24 Urine Toxicology Reviewed. ml 18:34 levETIRAcetam (20mg/kg) 1000 mg IVPB at 400 mL/hr once over 15 mins; dilute in 100mL NS ml or D5W ordered. 18:52 ED course: called to room as patient had witness tonic clonic sz - lasted 3 minutes. ml then post ictal. temp 101.5 degrees. will treat w tylenol and check cultures. dr venegas will be notifeid. mlg. 18:54 Acetaminophen Suppository 650 mg NC once ordered. ml 18:54 -Blood Culture (Adults Only), peripheral from different site, or from device/port/PICC ml etc. if present ordered. 18:54 Vital Signs ordered. ml 18:54 -Blood Culture Ordered. EDMS 18:55 Oxygen at 15 Liters/Minute NRB Mask ordered. ml 18:55 UA Reviewed. ml 18:55 CT Head Without Contrast Reviewed. ml 18:56 Misc. Nursing Order ordered. ml 18:56 Lactic Acid (Quispe tube on ice) Ordered. EDMS 18:57 Misc. Nursing Order ordered. ml 18:58 Chest, 1 View Ordered. EDMS 19:00 vancomycin (loading dose for pt. wt. >= 80kg) 2000 mg IVPB once ordered. ml 19:00 Piperacillin-Tazobactam 3.375 grams IVPB once over 30 mins; dilute in 50mL of NS or D5W ml ordered. 19:01 ED course: spoke to dr venegas - aware of current events. she is requesting zosyn and ml vanco one dose. blood cx, lactate, cxr ordered. mlg. 19:02 LORazepam 2 mg IVP once ordered. pml 19:03 ED course: spoke to dr nathan - aware of fever, recent sz. mlg. ml 19:07 BLOOD CULTURES Ordered. EDMS 19:09 -Blood Culture (Adults Only), peripheral from different site, or from device/port/PICC ml3 etc. if present complete. 20:18 LACTIC ACID LEVEL, LACTATE Ordered. EDMS 20:18 CBC WITH DIFFERENTIAL Ordered. EDMS 20:18 BASIC METABOLIC PROFILE Ordered. EDMS 20:18 MAGNESIUM LEVEL Ordered. EDMS 20:20 Admission / Observation Status ordered. EDMS 20:20 NPO DIET ordered. EDMS 20:28 vancomycin (loading dose for pt. wt. >= 80kg) 2000 mg IVPB once ordered. ko2 21:59 MRSA SCREEN Ordered. EDMS 22:04 T-Sheet-- Draft Copy was scanned into [employer] and attached to record. klr 09/17 09:53 ECG/EKG was scanned into [employer] and attached to record. gb Administered Medications: 09/16 16:29 Drug: NS 0.9% 1000 ml [sodium chloride 0.9 % intravenous solution] Route: IV; Rate: 100 ld5 mL/hr; Site: right antecubital; 17:34 Drug: Ondansetron 4 mg [ondansetron HCl 2 mg/mL intravenous solution (2 mL)] Route: jf3 IVP; Site: right antecubital; 18:21 Follow up: Response: Nausea is decreased jf3 18:50 Drug: LORazepam 2 mg [lorazepam 2 mg/mL injection solution (1 mL)] Route: IVP; Site: pml right antecubital; 19:00 Drug: levETIRAcetam (20mg/kg) 1000 mg [levetiracetam 500 mg/5 mL intravenous solution] jf3 Route: IVPB; Rate: 400 mL/hr; Infused Over: 15 mins; Site: right antecubital; 19:39 Follow up: IV Status: Completed infusion; IV Intake: 100ml ko2 19:02 Drug: Acetaminophen 650 mg [acetaminophen 650 mg rectal suppository (1 supp)] Route: NC;pml 19:50 Drug: Piperacillin-Tazobactam 3.375 grams [piperacillin-tazobactam 3.375 gram ko2 intravenous solution] Route: IVPB; Infused Over: 30 mins; Site: right antecubital; 20:27 Follow up: IV Status: Completed infusion; IV Intake: 50ml ko2 20:28 Drug: vancomycin (loading dose for pt. wt. >= 80kg) 2000 mg [vancomycin 500 mg ko2 intravenous solution] Route: IVPB; Site: right antecubital; Critical Care Time: 19:07 Critical care time: Bedside Care: 90 minutes, Consultation: 10 minutes. Total time: 100 ml minutes Signatures: Dispatcher [employer] EDMS Anne Forbes MD MD Alison Harris, RN RN Stacy George, Reg Reg gb Archana, DianaJacquelynMicaela, Kiln Charger Unit ml3 Wendi Mak RN RN pml Ogden, Kari, RN RN ko2 Todd Sevilla RN RN 3 Alison Murphy, Reg Reg ks16 Sri Guillaume Laura RN ld5 The chart was reviewed and I authenticate all verbal orders and agree with the evaluation and treatment provided.Corrections: (The following items were deleted from the chart) 20:32 20:18 BLOOD CULTURES ordered. EDND EDMS Attachments: 17:07 [facility] Payment Agreement [email or web address] 22:04 T-Sheet-- Draft Copy r 09/17 09:53 ECG/EKG gb Chart Complete MTDD
--- NOTE | 2016-09-19 11:52 | EDDOCDS ---
Physician Documentation [facility] Name: Annette Gerardo Age: 41 yrs Sex: Female : 1975 Arrival Date: 09/16/2016 Time: 15:31 Bed 2 Private MD: NO PRIMARY PHYSICIAN, . Disposition: 09/16 19:07 Critical Care:. ml Disposition: 09/16/16 18:47 Hospitalization ordered by Patito Venegas for Inpatient Admission. Preliminary diagnosis are Epilepsy and recurrent seizures, Abnormal product of conception, unspecified - retained; vaginal bleeding. - Bed requested for ICU. - Status is Inpatient Admission. massiel - Condition is Stable. - Problem is new. - Symptoms are unchanged. Historical: - Allergies: no known allergies; - Home Meds: 1. none - PMHx: Seizures; - PSHx: none; - Social history: Smoking status: Patient states was never smoker of tobacco. No barriers to communication noted, The patient speaks fluent Slovenian. - Family history: Not pertinent. - : The pt / caregiver states he / she is not on anticoagulants. Home medication list is obtained from family members. - Exposure Risk Screening:: None identified. 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 4 in. (162.56 cm) (R); Pain 0/10; 15:51 BP 140 / 65 (auto/); ko2 15:52 Pulse 81 MON; Pulse Ox 98% ; ko2 15:59 Pulse 81 MON; Pulse Ox 100% ; ko2 16:00 BP 148 / 68 (auto/); ko2 16:30 BP 148 / 68 (auto/); ko2 16:30 Pulse 80 MON; Pulse Ox 98% ; ko2 17:22 BP 131 / 61 (auto/); ko2 17:22 Pulse 85 MON; Pulse Ox 98% ; ko2 17:30 BP 132 / 65 (auto/); ko2 17:30 Pulse 90 MON; Pulse Ox 100% ; ko2 17:44 Pulse 84 MON; Pulse Ox 99% ; ko2 17:45 BP 124 / 75 (auto/); ko2 18:00 BP 117 / 58 (auto/); ko2 18:00 Pulse 82 MON; Pulse Ox 98% ; ko2 18:15 BP 116 / 60 (auto/); ko2 18:15 Pulse 84 MON; Pulse Ox 97% ; ko2 18:29 Pulse 82 MON; Pulse Ox 97% ; ko2 18:30 BP 116 / 57 (auto/); ko2 18:44 Pulse 84 MON; Pulse Ox 99% ; ko2 18:45 BP 114 / 61 (auto/); ko2 19:01 Temp 101.3(TE); pml 19:01 Temp 99.3(R); pml 19:15 Pulse 114 MON; Pulse Ox 100% ; ko2 19:15 BP 123 / 65 (auto/); ko2 19:37 BP 142 / 68 (auto/); ko2 19:37 Pulse 106 MON; ko2 19:56 BP 115 / 57 (auto/); ko2 19:58 Pulse 95 MON; Pulse Ox 100% ; ko2 20:00 BP 130 / 60 (auto/); ko2 20:00 Pulse 101 MON; Pulse Ox 100% ; ko2 20:14 Pulse Ox 100% ; ko2 20:15 BP 123 / 61 (auto/); ko2 20:16 Pulse Ox 97% ; ko2 20:30 BP 110 / 67 (auto/); ko2 15:35 Body Mass Index 44.27 (117.00 kg, 162.56 cm) elp MDM: 16:08 Accucheck ordered. ml 16:09 IV Saline Lock ordered. ml 16:09 Medical Records Technician/Pulse Ox/q 15 min VS ordered. ml 16:09 Rhythm Strip to chart ordered. ml 16:10 CBC with Diff Ordered. EDMS 16:10 MED Profile Ordered. EDMS 16:10 Liver Profile Ordered. EDMS 16:10 Magnesium Level Ordered. EDMS 16:10 CIP Ordered. EDMS 16:10 Troponin Ordered. EDMS 16:10 HCG,Serum Qualitative Ordered. EDMS 16:10 ECG WITH READING ER PHYS+CARDIAG ordered. EDMS 16:11 Type & Screen Ordered. EDMS 16:11 CT Head Without Contrast Ordered. EDMS 16:11 NS 0.9% 1000 ml IV at 100 mL/hr continuous ordered. ml 16:12 -US Pelvic Non-Ob Complete Ordered. EDMS 16:12 DUPLEX SCAN LIMITED (DOPPLER)+US Ordered. EDMS 16:20 Ondansetron 4 mg IVP once ordered. ml 16:20 Fingerstick Blood Sugar Ordered. EDMS 17:07 Financial registration complete. [email or web address] 17:07 [facility] Payment Agreement was scanned into [employer] and attached to record. [email or web address] 17:12 CBC with Diff Reviewed. ml 17:12 MED Profile Reviewed. ml 17:12 CIP Reviewed. ml 17:12 Liver Profile Reviewed. ml 17:12 Magnesium Level Reviewed. ml 17:12 Troponin Reviewed. ml 17:12 HCG,Serum Qualitative Reviewed. ml 17:12 Type & Screen Reviewed. ml 17:12 Fingerstick Blood Sugar Reviewed. ml 17:12 Transvaginal NON- US Ordered. EDMS 17:32 BED REQUEST+ADM ordered. EDMS 17:34 UA Ordered. EDMS 17:34 Urine Culture Ordered. EDMS 17:44 Urine Toxicology Ordered. EDMS 18:24 Urine Toxicology Reviewed. ml 18:34 levETIRAcetam (20mg/kg) 1000 mg IVPB at 400 mL/hr once over 15 mins; dilute in 100mL NS ml or D5W ordered. 18:52 ED course: called to room as patient had witness tonic clonic sz - lasted 3 minutes. ml then post ictal. temp 101.5 degrees. will treat w tylenol and check cultures. dr venegas will be notifeid. mlg. 18:54 Acetaminophen Suppository 650 mg FL once ordered. ml 18:54 -Blood Culture (Adults Only), peripheral from different site, or from device/port/PICC ml etc. if present ordered. 18:54 Vital Signs ordered. ml 18:54 -Blood Culture Ordered. EDMS 18:55 Oxygen at 15 Liters/Minute NRB Mask ordered. ml 18:55 UA Reviewed. ml 18:55 CT Head Without Contrast Reviewed. ml 18:56 Misc. Nursing Order ordered. ml 18:56 Lactic Acid (Quispe tube on ice) Ordered. EDMS 18:57 Misc. Nursing Order ordered. ml 18:58 Chest, 1 View Ordered. EDMS 19:00 vancomycin (loading dose for pt. wt. >= 80kg) 2000 mg IVPB once ordered. ml 19:00 Piperacillin-Tazobactam 3.375 grams IVPB once over 30 mins; dilute in 50mL of NS or D5W ml ordered. 19:01 ED course: spoke to dr venegas - aware of current events. she is requesting zosyn and ml vanco one dose. blood cx, lactate, cxr ordered. mlg. 19:02 LORazepam 2 mg IVP once ordered. pml 19:03 ED course: spoke to dr nathan - aware of fever, recent sz. mlg. ml 19:07 BLOOD CULTURES Ordered. EDMS 19:09 -Blood Culture (Adults Only), peripheral from different site, or from device/port/PICC ml3 etc. if present complete. 20:18 LACTIC ACID LEVEL, LACTATE Ordered. EDMS 20:18 CBC WITH DIFFERENTIAL Ordered. EDMS 20:18 BASIC METABOLIC PROFILE Ordered. EDMS 20:18 MAGNESIUM LEVEL Ordered. EDMS 20:20 Admission / Observation Status ordered. EDMS 20:20 NPO DIET ordered. EDMS 20:28 vancomycin (loading dose for pt. wt. >= 80kg) 2000 mg IVPB once ordered. ko2 21:59 MRSA SCREEN Ordered. EDMS 22:04 T-Sheet-- Draft Copy was scanned into [employer] and attached to record. klr 09/17 09:53 ECG/EKG was scanned into [employer] and attached to record. gb Administered Medications: 09/16 16:29 Drug: NS 0.9% 1000 ml [sodium chloride 0.9 % intravenous solution] Route: IV; Rate: 100 ld5 mL/hr; Site: right antecubital; 17:34 Drug: Ondansetron 4 mg [ondansetron HCl 2 mg/mL intravenous solution (2 mL)] Route: jf3 IVP; Site: right antecubital; 18:21 Follow up: Response: Nausea is decreased jf3 18:50 Drug: LORazepam 2 mg [lorazepam 2 mg/mL injection solution (1 mL)] Route: IVP; Site: pml right antecubital; 19:00 Drug: levETIRAcetam (20mg/kg) 1000 mg [levetiracetam 500 mg/5 mL intravenous solution] jf3 Route: IVPB; Rate: 400 mL/hr; Infused Over: 15 mins; Site: right antecubital; 19:39 Follow up: IV Status: Completed infusion; IV Intake: 100ml ko2 19:02 Drug: Acetaminophen 650 mg [acetaminophen 650 mg rectal suppository (1 supp)] Route: FL;pml 19:50 Drug: Piperacillin-Tazobactam 3.375 grams [piperacillin-tazobactam 3.375 gram ko2 intravenous solution] Route: IVPB; Infused Over: 30 mins; Site: right antecubital; 20:27 Follow up: IV Status: Completed infusion; IV Intake: 50ml ko2 20:28 Drug: vancomycin (loading dose for pt. wt. >= 80kg) 2000 mg [vancomycin 500 mg ko2 intravenous solution] Route: IVPB; Site: right antecubital; Critical Care Time: 19:07 Critical care time: Bedside Care: 90 minutes, Consultation: 10 minutes. Total time: 100 ml minutes Signatures: Dispatcher [employer] EDMS Anne Forbes MD MD Alison Harris, RN RN Stacy George, Reg Reg gb Archana, DianaJacquelynMicaela, Oil Treater Unit ml3 Wendi Mak RN RN pml Ogden, Kari, RN RN ko2 Todd Sevilla RN RN 3 Alison Murphy, Reg Reg ks16 Sri Guillaume Laura RN ld5 The chart was reviewed and I authenticate all verbal orders and agree with the evaluation and treatment provided.Corrections: (The following items were deleted from the chart) 20:32 20:18 BLOOD CULTURES ordered. EDOK EDMS Attachments: 17:07 [facility] Payment Agreement [email or web address] 22:04 T-Sheet-- Draft Copy r 09/17 09:53 ECG/EKG gb Chart Complete MTDD
== END 2016-09-18 12:37 | disposition home or self-care (01) | DRG 544 ==
LOC: M ED 15:31 → M ED INP 19:56 → M ICU 22:05 → M MSPAV 09-17 19:26
PROVIDERS: ADMIT Hospitalist; ATTEND Internal Medicine
PROC: 10D17ZZ Extraction of Products of Conception, Retained, Via Natural or Artificial Opening (ICD-10-PCS; principal; 2016-09-17 09:31)
DX: O03.0 Genital tract and pelvic infection following incomplete spontaneous abortion (principal); G40.901 Epilepsy, unspecified, not intractable, with status epilepticus; D50.9 Iron deficiency anemia, unspecified; N80.9 Endometriosis, unspecified; Z82.0 Family history of epilepsy and other diseases of the nervous system

== ENCOUNTER 2016-11-20 15:21 | Emergency (ER) | payer SELFPAY ==
[~2016-11-20 15:21] MED LIST changes: +AUGM875T27 PO; +IRON65TA PO
[2016-11-20] MEDS ORDERED: ONDANSETRON 4MG/2ML VIAL (J2405) IV ONE (15:45)
[2016-11-20 15:56] LABS: BASO % 0.3 % (0.0-1.0); EOS # 0.1 K/mm3 (0.0-0.50); EOS % 0.6 % (0.0-3.0); LARGE UNSTAINED CELL # 0.2 K/mm3 (0.0-0.4); LARGE UNSTAINED CELL % 2.1 % (0.0-4.0); LYMPH % 15.5 % (24.0-44.0); MEAN CORPUSCULAR HEMOGLOBIN 26.1 pg (27.0-33.0); MEAN CORPUSCULAR HGB CONC 32.3 g/dl (32.0-36.5); MEAN CORPUSCULAR VOLUME 80.6 fl (80.0-96.0); MONO # 0.7 K/mm3 (0.0-0.8); NEUTROPHILS # 8.5 K/mm3 (1.8-7.7); NEUTROPHILS % 75.4 % (36.0-66.0); PLATELET COUNT, AUTOMATED 219 k/mm3 (150-450); RED CELL DISTRIBUTION WIDTH 15.6 % (11.5-14.5); WHITE BLOOD COUNT 11.3 K/mm3 (4.0-10.0)
[2016-11-20 16:07] LABS: CONTROL LINE HCG INT CTR LINE PRESENT
[2016-11-20 16:10] LABS: ANION GAP 18 MEQ/L (8-16); BLOOD UREA NITROGEN 12 MG/DL (7-18); CALCIUM LEVEL 9.1 MG/DL (8.5-10.1); CARBON DIOXIDE LEVEL 16 MEQ/L (21-32); CHLORIDE LEVEL 108 MEQ/L (98-107); CREATININE FOR GFR 1.05 MG/DL (0.55-1.02); GLOMERULAR FILTRATION RATE > 60.0 (>60); GLUCOSE, FASTING 136 MG/DL (70-105); POTASSIUM SERUM 3.7 MEQ/L (3.5-5.1); SODIUM LEVEL 142 MEQ/L (136-145)
[2016-11-20] MEDS ORDERED: carBAMazepine 200 MG TAB PO ONE (16:30)
--- NOTE | 2016-11-20 16:45 | REP ---
Head CT without contrast: History: Seizures. Comparison study: No comparison study. CT findings: Bone window settings demonstrate an intact bony calvarium. There is no evidence of skull fracture or incidental bony calvarial lesion. The visualized paranasal sinuses appear clear. No intraorbital abnormality is seen. On soft tissue window setting images; the lateral, third, and fourth ventricles are normal in size and position. Quispe-white differentiation pattern is normal above and below the tentorium. There are is no evidence of intracranial hemorrhage. No mass, edema, infarction, or midline shift is seen. No extra-axial fluid collection is appreciated. Impression: Negative noncontrast head CT. Signed by Jared Whiteside MD 11/20/2016 07:20 P
[2016-11-20] MEDS ORDERED: KEPP500T6 PO (18:14)
[2016-11-20 18:26] VITALS: BP 135/65
== END 2016-11-20 21:45 | disposition home or self-care (01) ==
LOC: MERGE 16:45 → M ED 16:45
DX: G40.309 Generalized idiopathic epilepsy and epileptic syndromes, not intractable, without status epilepticus (principal); Z79.899 Other long term (current) drug therapy; Z79.2 Long term (current) use of antibiotics
CPT/HCPCS: 36415; 70450; 80048; 81001; 84703; 85025; 87086; 96374; 99284; J2405

== ENCOUNTER 2019-01-16 22:27 | Day surgery (SDC) | payer SELFPAY ==
[~2019-01-16] VITALS: Ht 162.6 cm; Wt 130.6 kg
[~2019-01-16 22:27] MED LIST changes: -AUGM875T27 PO; +AUGM875T28 PO; +KEPP1TAB PO; +KEPP1TAB2 PO; +PRENTAB9 PO
[2019-01-16] MEDS ORDERED: NS 1,000 ML IV ONE ×2 (22:45)
[2019-01-16 23:06] LABS: BASO % 0.1 % (0.0-1.0); HEMATOCRIT 29.8 % (36.0-47.0); HEMOGLOBIN 9.8 g/dl (12.0-15.5); LYMPH # 0.9 10^3/uL (1.5-4.5); LYMPH % 5.3 % (24.0-44.0); MEAN CORPUSCULAR HEMOGLOBIN 27.2 pg (27.0-33.0); MEAN CORPUSCULAR HGB CONC 32.9 g/dl (32.0-36.5); MEAN CORPUSCULAR VOLUME 82.8 fl (80.0-96.0); MONO # 0.9 10^3/uL (0.0-0.8); MONO % 5.5 % (0.0-5.0); NEUTROPHILS # 15.1 10^3/uL (1.8-7.7); NEUTROPHILS % 88.7 % (36.0-66.0); PLATELET COUNT, AUTOMATED 113 10^3/uL (150-450)
[2019-01-16 23:31] LABS: ALBUMIN 2.7 GM/DL (3.2-5.2); ALT/SGPT 24 U/L (12-78); BILIRUBIN,DIRECT 0.1 MG/DL (0.0-0.2); BILIRUBIN,TOTAL 0.4 MG/DL (0.2-1.0); BLOOD UREA NITROGEN 10 MG/DL (7-18); CALCIUM LEVEL 8.1 MG/DL (8.5-10.1); CARBON DIOXIDE LEVEL 21 MEQ/L (21-32); CHLORIDE LEVEL 106 MEQ/L (98-107); CK-MB VALUE MASS < 1.0 NG/ML (<3.6); CPK CREATINE PHOSPHOKINASE 53 U/L (26-192); CREATININE FOR GFR 0.75 MG/DL (0.55-1.30); GLOMERULAR FILTRATION RATE > 60.0 (>58); GLUCOSE, FASTING 135 MG/DL (70-100); LIPASE 105 U/L (73-393); MB/CK RELATIVE INDEX 1.89 (< OR =4); POTASSIUM SERUM 3.9 MEQ/L (3.5-5.1); SODIUM LEVEL 137 MEQ/L (136-145); TOTAL PROTEIN 6.3 GM/DL (6.4-8.2); TROPONIN I < 0.02 NG/ML (< 0.10)
[2019-01-17 00:14] LABS: HCG, SERUM QUANTITATIVE 53503 MIU/ML
--- NOTE | 2019-01-17 00:16 | REPVR ---
EXAM: US First Trimester, Transabdominal EXAM DATE/TIME: 01/16/2019 11:18 PM CLINICAL HISTORY: 43 years old, female; Signs and symptoms; Lmp or gestational age (in weeks): 11w 5d; Other: Heavy vaginal bleeding; ; Additional info: Vaginal bleeding, likely spontaneous TECHNIQUE: Imaging protocol: Real-time transabdominal obstetrical ultrasound of the maternal pelvis and a first trimester , less than 14 weeks 0 days, with image documentation. COMPARISON: No relevant prior studies available. FINDINGS: Uterus: Enlarged uterus measuring 19.3 x 7.0 x 9.6 cm. Endometrial stripe is thickened and heterogeneous measuring 3.2 cm. No definite blood flow is seen within the endometrium. No intrauterine seen. Cervix: Unremarkable. Right adnexa: Right ovary measures 5.0 x 2.9 x 4.0 cm. Cyst in the right ovary measuring 3.2 x 3.2 x 2.6 cm. No evidence of ovarian torsion. Left adnexa: Left ovary is not seen. Intraperitoneal: No free fluid. IMPRESSION: Limited transabdominal study. Transvaginal study was not performed secondary to enlarged uterus. Enlarged uterus measuring 19.3 x 7.0 x 9.6 cm. Endometrial stripe is thickened and heterogeneous measuring 3.2 cm. No definite blood flow is seen within the endometrium. No intrauterine seen. Right ovary measures 5.0 x 2.9 x 4.0 cm. Cyst in the right ovary measuring 3.2 x 3.2 x 2.6 cm. No evidence of ovarian torsion. Left ovary is not seen. Clinical correlation with beta-hCG level and followup ultrasound is recommended. Electronically signed by: Mayda Wiggins On 01/17/2019 00:16:25 AM
[2019-01-17] MEDS ORDERED: RHOGAM 300 MCG (1500 IU) INJ (J2790) IM ONE (00:30)
[2019-01-17] MEDS ORDERED: LIDOCAINE 2% INJ 100 MG/5 ML SDV (FOR ANES.) As Ordered ONE (04:21)
[2019-01-17] MEDS ORDERED: ONDANSETRON 4MG/2ML VIAL (J2405) As Ordered ONE (04:21)
[2019-01-17] MEDS ORDERED: dexameTHASONE 4 MG/ML 1ML VIAL (J1100) As Ordered ONE (04:21)
[2019-01-17] MEDS ORDERED: fentaNYL 100 MCG/2 ML INJECTION (J3010) As Ordered ONE (04:21)
[2019-01-17] MEDS ORDERED: MIDAZOLAM INJ 2 MG/2 ML VIAL (J2250) As Ordered ONE (04:21)
[2019-01-17] MEDS ORDERED: PROPOFOL 200 MG/20 ML VIAL As Ordered ONE (04:21)
[2019-01-17] MEDS ORDERED: PHENYLephrine HCL 500 MCG/5 ML (100MCG/ML) SYRINGE (J2370) As Ordered ONE (04:46)
[2019-01-17] MEDS ORDERED: KETOROLAC 60 MG/2 ML VIAL (J1885) As Ordered ONE (04:49)
[2019-01-17] MEDS ORDERED: ACETAMINOPHEN 500 MG TAB PO PRN (05:30)
[2019-01-17] MEDS ORDERED: METOCLOPRAMIDE INJ 10MG/2ML VIAL (J2765) IV PRN (05:30)
[2019-01-17] MEDS ORDERED: LR 1,000 ML IV SCH ×2 (05:30)
[2019-01-17] MEDS ORDERED: fentaNYL 100 MCG/2 ML INJECTION (J3010) IV PRN (05:30)
[2019-01-17] MEDS ORDERED: NORCO, ANEXSIA 5/325MG TABLET (HYDROcodone/ACETAMINOPHEN) PO PRN (05:30)
[2019-01-17 06:02] LABS: HEMOGLOBIN 8.3 g/dl (12.0-15.5); MEAN CORPUSCULAR HEMOGLOBIN 27.5 pg (27.0-33.0); MEAN CORPUSCULAR HGB CONC 33.2 g/dl (32.0-36.5); MEAN CORPUSCULAR VOLUME 82.8 fl (80.0-96.0); PLATELET COUNT, AUTOMATED 100 10^3/uL (150-450); RED BLOOD COUNT 3.02 10^6/uL (4.00-5.40); WHITE BLOOD COUNT 16.1 10^3/uL (4.0-10.0)
[2019-01-17 06:30] VITALS: BP 95/50
[2019-01-17 07:30] VITALS: BP 101/54
[2019-01-17 08:30] VITALS: BP 111/57
[2019-01-17 09:30] VITALS: BP 110/55
[2019-01-17 10:30] VITALS: BP 107/59
--- NOTE | 2019-01-17 15:14 | RO ---
DATE OF PROCEDURE: 01/17/2019 PREPROCEDURE DIAGNOSIS: Incomplete , approximately 12 weeks gestation. POSTPROCEDURE DIAGNOSIS: Incomplete , approximately 12 weeks gestation. PROCEDURE: Dilatation, evacuation and curettage. SURGEON: Alexander Chandra MD HOMOEOPATH: ANESTHESIA: General endotracheal. ESTIMATED BLOOD LOSS: 300 mL. URINE OUTPUT: 100 mL. FINDINGS: Small amount of products of conception, enlarged uterus. DESCRIPTION OF PROCEDURE: The patient was taken to the operating room where LMA anesthesia was induced. She was prepped and draped in a sterile fashion in the dorsal lithotomy position. The bladder was emptied with a catheter. Speculum was placed. The anterior lip of the cervix was grasped with a tenaculum. The cervix was already dilated adequately so minimal dilatation was needed. A #10 mm suction curette was placed through the internal os. The suction device was then activated and the products of conception were coming through the suction tube. Sharp curettage was performed. Uterine cavity was deemed to be empty. All instruments were removed. Sponge and instrument counts were correct.
== END 2019-01-17 11:25 | disposition home or self-care (01) ==
LOC: M ED 22:27 → EDBEDREQSVC 01-17 00:15 → M SDC 01-17 00:30 → M PED 01-17 06:10 → M SDC 01-17 11:25
PROVIDERS: ATTEND Specialist
DX: O02.1 Missed abortion (principal); K21.9 Gastro-esophageal reflux disease without esophagitis; G40.909 Epilepsy, unspecified, not intractable, without status epilepticus; Z79.899 Other long term (current) drug therapy
CPT/HCPCS: 36415; 59820; 76801; 80048; 80076; 81001; 82550; 82553; 83690; 84484; 84702; 85025; 85027; 86850; 86900; 86901; 88305; 93041; 93976; 96360; 96372; 99285; J1100; J1885; J2250; J2370; J2405; J2790; J3010

== ENCOUNTER 2020-12-11 11:42 | Emergency (ER) | payer SELFPAY ==
[~2020-12-11] VITALS: Ht 162.6 cm; Wt 136.4 kg
[2020-12-11 13:01] LABS: BASO % 0.2 % (0.0-1.0); EOS # 0.1 10^3/uL (0.0-0.5); EOS % 0.7 % (0.0-3.0); HEMATOCRIT 39.5 % (36.0-47.0); LYMPH # 1.3 10^3/uL (1.5-5.0); LYMPH % 13.4 % (24.0-44.0); MEAN CORPUSCULAR HEMOGLOBIN 26.3 pg (27.0-33.0); MEAN CORPUSCULAR HGB CONC 30.4 g/dl (32.0-36.5); MEAN CORPUSCULAR VOLUME 86.4 fl (80.0-96.0); MONO # 1.1 10^3/uL (0.0-0.8); MONO % 11.7 % (2.0-8.0); NEUTROPHILS % 73.6 % (36.0-66.0); PLATELET COUNT, AUTOMATED 141 10^3/uL (150-450); RED BLOOD COUNT 4.57 10^6/uL (4.00-5.40); WHITE BLOOD COUNT 9.5 10^3/uL (4.0-10.0)
[2020-12-11 13:10] LABS: INR 1.03; PROTHROMBIN TIME 13.7 SECONDS (12.5-14.3)
--- NOTE | 2020-12-11 13:10 | REP ---
INDICATION: r/o DVT. COMPARISON: None. TECHNIQUE: Duplex ultrasound of the left lower extremity. FINDINGS: The deep veins demonstrate normal compression, normal Doppler color flow and normal Doppler waveforms with respiration augmentation at multiple levels from the popliteal vein to the common femoral vein. There is no left lower extremity deep vein thrombus. Scanning is continued into the left calf from the proximal to mid calf areas. Within this zone there is a large fluid collection measuring 9.7 x 6.1 cm. This is nonspecific and could represent hematoma or possibly ruptured Keyes cyst. IMPRESSION: No deep vein thrombus in the left lower extremity. Large focal fluid collection in the proximal to mid calf, likely hematoma versus ruptured Keyes cyst. <Electronically signed by Kayden Luque > 12/11/20 [id number]
[2020-12-11 13:11] LABS: PARTIAL THROMBOPLASTIN TIME 30.5 SECONDS (24.2-38.5)
[2020-12-11 13:20] LABS: ERYTHROCYTE SEDIMENTATION RATE 51 mm/hr (0-20)
[2020-12-11 13:33] LABS: ALBUMIN 3.3 GM/DL (3.2-5.2); BILIRUBIN,DIRECT 0.2 MG/DL (0.0-0.2); BILIRUBIN,TOTAL 0.4 MG/DL (0.2-1.0); C REACTIVE PROTEIN QUANTITATIV 6.15 MG/DL (0.00-0.30); TOTAL PROTEIN 7.5 GM/DL (6.4-8.2)
[2020-12-11] MEDS ORDERED: NORCO, ANEXSIA 5/325MG TABLET (HYDROcodone/ACETAMINOPHEN) PO ONE (13:55)
[2020-12-11] MEDS ORDERED: HYDR-3713 PO (15:28)
[2020-12-11 15:33] VITALS: BP 139/81
== END 2020-12-11 16:42 | disposition home or self-care (01) ==
LOC: M ED 11:42 → EDBD 11:42 → M ED 16:42
DX: S80.12XA Contusion of left lower leg, initial encounter (principal); X58.XXXA Exposure to other specified factors, initial encounter; Y92.9 Unspecified place or not applicable; Y93.9 Activity, unspecified; Y99.9 Unspecified external cause status; E66.9 Obesity, unspecified; R56.9 Unspecified convulsions; R51.9 Headache, unspecified; Z79.899 Other long term (current) drug therapy